=== PATIENT | female | born 1940 | race Two or more races ===

== ENCOUNTER 2017-09-10 04:59 | Observation (INO) | payer MEDICARE, OTHER ==
--- NOTE | 2017-09-10 05:32 | ED ---
Fall HPI - General Chief Complaint: Fall Stated Complaint: FALL Time Seen by Provider: 09/10/17 05:14 Source: patient, EMS Mode of arrival: EMS - History of Present Illness Initial Comments: This patient is a 77-year-old woman who had gotten up to use the bathroom this morning and then fell, striking her left side on the floor. She experienced pain to the left shoulder. The patient had been on the phone with her daughter called EMS. Patient denies other injuries. MD Complaint: fall Onset/Timin -: hour(s) Fall From: standing When Fall Occurred: 1 hour [employer]ERE[employer] O[employer] Fall Witnessed: no Place Fall Occurred: home Loss of Consciousness: unsure Prolonged Down Time?: no Symptoms Prior to Fall: dizziness Location - Extremities: Left: Shoulder Severity: moderate Quality: sharp Context: tripped/slipped Associated Symptoms: denies - Related Data Previous Rx's Medication Instructions Recorded Naproxen [Naprosyn] 500 mg PO Q12HR #14 tab 09/10/17 Docusate [Colace] 100 mg PO BID #60 capsule 09/11/17 HYDROcodone/APAP 5-325MG [[place] 1 tab PO Q4HR PRN #40 tab 09/11/17 5-325] Allergies Allergy/AdvReac Type Severity Reaction Status Date / Time No Known Allergies Allergy Verified 09/10/17 07:27 Review of Systems ROS Statement: Those systems with pertinent positive or pertinent negative responses have been documented in the HPI. ROS Other: All systems not noted in ROS Statement are negative. Constitutional: Denies: fever, chills, weakness Respiratory: Denies: cough, dyspnea Cardiovascular: Denies: chest pain, palpitations, edema, syncope Gastrointestinal: Denies: abdominal pain, nausea, vomiting Genitourinary: Denies: dysuria, hematuria Musculoskeletal: Reports: as per HPI, arthralgia. Denies: back pain Skin: Denies: rash Neurological: Denies: headache, weakness, numbness Past Medical History Past Medical History: Syncope History of Any Multi-Drug Resistant Organisms: None Reported Past Surgical History: Appendectomy, Bowel Resection, Cholecystectomy, Hysterectomy, Orthopedic Surgery Additional Past Surgical History / Comment(s): wrist surgery, L hip fx Past Psychological History: No Psychological Hx Reported Smoking Status: Never smoker Past Alcohol Use History: Unable to Obtain Past Drug Use History: None Reported - Past Family History Mother Family Medical History: Cancer Additional Family Medical History / Comment(s): colon Father Family Medical History: Cancer Additional Family Medical History / Comment(s): lung Sister(s) Family Medical History: AFIB, CVA/TIA General Exam Limitations: no limitations General appearance: alert, in no apparent distress, obese Head exam: Present: atraumatic, normocephalic Eye exam: Present: normal appearance, PERRL, EOMI. Absent: scleral icterus, conjunctival injection ENT exam: Present: normal oropharynx Neck exam: Present: normal inspection, full ROM. Absent: tenderness Respiratory exam: Present: normal lung sounds bilaterally. Absent: respiratory distress, wheezes, rales, rhonchi, stridor, chest wall tenderness, accessory muscle use, decreased breath sounds Cardiovascular Exam: Present: normal rhythm, bradycardia, normal heart sounds. Absent: systolic murmur, diastolic murmur, rubs, gallop GI/Abdominal exam: Present: soft. Absent: distended, tenderness, guarding, rebound, mass Extremities exam: Present: normal inspection, normal capillary refill. Absent: pedal edema, calf tenderness Back exam: Present: normal inspection. Absent: CVA tenderness (R), CVA tenderness (L), vertebral tenderness Neurological exam: Present: alert, oriented X3, CN II-XII intact. Absent: motor sensory deficit Skin exam: Present: warm, dry, intact, normal color. Absent: rash Course Vital Signs 09/10/17 09/10/17 09/10/17 05:00 05:16 05:56 Temperature 96.9 F L Pulse Rate 50 L 53 L Pulse Rate [ 50 L Bilateral Radial] Respiratory 18 16 Rate Blood Pressure 168/74 166/74 O2 Sat by Pulse 94 L 99 Oximetry 09/10/17 09/10/17 09/10/17 06:28 07:13 08:54 Temperature 98.1 F Pulse Rate 53 L 62 60 Pulse Rate [ Bilateral Radial] Respiratory 20 16 Rate Blood Pressure 140/79 145/85 158/83 O2 Sat by Pulse 99 98 99 Oximetry Medical Decision Making - Medical Decision Making Patient is a 77-year-old woman who had what his son like a syncopal episode and fall at home this morning. She has sustained a humerus fracture. Patient states she [facility] and would like to be seen by them again for this fracture. Patient be admitted for telemetry monitoring and repeat cardiac enzymes. - Lab Data Result diagrams: 09/10/17 05:12 09/10/17 05:12 Lab Results 09/10/17 09/10/17 09/10/17 Range/Units 05:12 05:12 05:12 WBC 7.0 (3.8-10.6) k/uL RBC 5.00 (3.80-5.40) m/uL Hgb 14.4 (11.4-16.0) gm/dL Hct 45.2 (34.0-46.0) % MCV 90.5 (80.0-100.0) fL MCH 28.9 (25.0-35.0) pg MCHC 31.9 (31.0-37.0) g/dL RDW 14.3 (11.5-15.5) % Plt Count 202 (150-450) k/uL Neutrophils % 54 % Lymphocytes % 35 % Monocytes % 4 % Eosinophils % 5 % Basophils % 1 % Neutrophils # 3.8 (1.3-7.7) k/uL Lymphocytes # 2.4 (1.0-4.8) k/uL Monocytes # 0.3 (0-1.0) k/uL Eosinophils # 0.4 (0-0.7) k/uL Basophils # 0.1 (0-0.2) k/uL PT (9.0-12.0) sec INR (<1.2) APTT (22.0-30.0) sec Sodium 144 (137-145) mmol/L Potassium 3.7 (3.5-5.1) mmol/L Chloride 105 (98-107) mmol/L Carbon Dioxide 26 (22-30) mmol/L Anion Gap 13 mmol/L BUN 13 (7-17) mg/dL Creatinine 0.80 (0.52-1.04) mg/dL Est GFR (MDRD) Af Amer >60 (>60 ml/min/1.73 sqM) Est GFR (MDRD) Non-Af >60 (>60 ml/min/1.73 sqM) Glucose 126 H (74-99) mg/dL Plasma Lactic Acid Jeffery (0.7-2.0) mmol/L Calcium 9.4 (8.4-10.2) mg/dL Magnesium 1.8 (1.6-2.3) mg/dL Total Bilirubin 0.4 (0.2-1.3) mg/dL AST 20 (14-36) U/L ALT 38 (9-52) U/L Alkaline Phosphatase 94 (38-126) U/L Total Creatine Kinase 38 (30-135) U/L CK-MB (CK-2) 0.8 (0.0-2.4) ng/mL CK-MB (CK-2) Rel Index 2.1 Troponin I <0.012 (0.000-0.034) ng/mL Total Protein 6.9 (6.3-8.2) g/dL Albumin 4.1 (3.5-5.0) g/dL 09/10/17 09/10/17 Range/Units 05:12 05:12 WBC (3.8-10.6) k/uL RBC (3.80-5.40) m/uL Hgb (11.4-16.0) gm/dL Hct (34.0-46.0) % MCV (80.0-100.0) fL MCH (25.0-35.0) pg MCHC (31.0-37.0) g/dL RDW (11.5-15.5) % Plt Count (150-450) k/uL Neutrophils % % Lymphocytes % % Monocytes % % Eosinophils % % Basophils % % Neutrophils # (1.3-7.7) k/uL Lymphocytes # (1.0-4.8) k/uL Monocytes # (0-1.0) k/uL Eosinophils # (0-0.7) k/uL Basophils # (0-0.2) k/uL PT 10.3 (9.0-12.0) sec INR 1.1 (<1.2) APTT 23.3 (22.0-30.0) sec Sodium (137-145) mmol/L Potassium (3.5-5.1) mmol/L Chloride (98-107) mmol/L Carbon Dioxide (22-30) mmol/L Anion Gap mmol/L BUN (7-17) mg/dL Creatinine (0.52-1.04) mg/dL Est GFR (MDRD) Af Amer (>60 ml/min/1.73 sqM) Est GFR (MDRD) Non-Af (>60 ml/min/1.73 sqM) Glucose (74-99) mg/dL Plasma Lactic Acid Jeffery 1.7 (0.7-2.0) mmol/L Calcium (8.4-10.2) mg/dL Magnesium (1.6-2.3) mg/dL Total Bilirubin (0.2-1.3) mg/dL AST (14-36) U/L ALT (9-52) U/L Alkaline Phosphatase (38-126) U/L Total Creatine Kinase (30-135) U/L CK-MB (CK-2) (0.0-2.4) ng/mL CK-MB (CK-2) Rel Index Troponin I (0.000-0.034) ng/mL Total Protein (6.3-8.2) g/dL Albumin (3.5-5.0) g/dL - EKG Data -: EKG Interpreted by Ct EKG shows normal: sinus rhythm, axis (Normal), intervals (AR interval is 218 ms , consistent with first-degree AV block. QRS 94 ms QTC 411 ms both of these are normal), ST-T waves Rate: bradycardia (Rate 51 bpm) Disposition Clinical Impression: Fall, Syncope, Humerus fracture Disposition: ADMITTED IP TO THIS [facility] Condition: Stable
[2017-09-10 05:48] LABS: Basophils # (A) 0.1 k/uL (0-0.2); Basophils % (A) 1 %; Eosinophils # (A) 0.4 k/uL (0-0.7); Eosinophils % (A) 5 %; HCT 45.2 % (34.0-46.0); HGB 14.4 gm/dL (11.4-16.0); Lymphocytes # (A) 2.4 k/uL (1.0-4.8); Lymphocytes % (A) 35 %; MCH 28.9 pg (25.0-35.0); MCHC 31.9 g/dL (31.0-37.0); MCV 90.5 fL (80.0-100.0); Mean Platelet Volume 7.9; Monocytes # (A) 0.3 k/uL (0-1.0); Monocytes % (A) 4 %; Neutrophils # (A) 3.8 k/uL (1.3-7.7); Neutrophils % (A) 54 %; Platelet Count 202 k/uL (150-450); RDW 14.3 % (11.5-15.5)
--- NOTE | 2017-09-10 05:55 | XR ---
EXAM: XR Chest, 1 View CLINICAL HISTORY: Reason: weakness TECHNIQUE: Frontal view of the chest. COMPARISON: None available FINDINGS: Lungs/pleura: Mild bibasilar atelectasis. No focal consolidation. No pleural effusion or pneumothorax. Heart/mediastinum: Mild enlargement of the cardiac silhouette. Soft tissues: Unremarkable. Bones: Displaced fracture of the left humeral neck. No definite dislocation of the left humeral head. Degenerative changes of the acromioclavicular joints. Upper abdomen: Normal. IMPRESSION: Displaced fracture of the left humeral neck. No acute cardiopulmonary abnormality.
--- NOTE | 2017-09-10 05:57 | XR ---
EXAM: XR Left Shoulder Complete, 2 or More Views CLINICAL HISTORY: Reason: Pain TECHNIQUE: Two or more views of the left shoulder. COMPARISON: None FINDINGS: Bones/joints: Displaced fracture of the left humeral neck. No dislocation of the left humeral head. Degenerative changes of the left acromioclavicular joint. Soft tissues: Normal. IMPRESSION: Displaced fracture of the left humeral neck. No left shoulder dislocation.
[2017-09-10 05:58] LABS: INR 1.1 (<1.2); Partial Thromboplastin Time 23.3 sec (22.0-30.0); Prothrombin Time 10.3 sec (9.0-12.0)
[2017-09-10 06:00] LABS: ALT 38 U/L (9-52); AST 20 U/L (14-36); Albumin 4.1 g/dL (3.5-5.0); Alkaline Phosphatase 94 U/L (38-126); Anion Gap 13 mmol/L; Blood Urea Nitrogen 13 mg/dL (7-17); Calcium 9.4 mg/dL (8.4-10.2); Carbon Dioxide 26 mmol/L (22-30); Chloride 105 mmol/L (98-107); Glucose 126 mg/dL (74-99); Magnesium 1.8 mg/dL (1.6-2.3); Potassium 3.7 mmol/L (3.5-5.1); Sodium 144 mmol/L (137-145); Total Bilirubin 0.4 mg/dL (0.2-1.3); Total Protein 6.9 g/dL (6.3-8.2)
[2017-09-10 06:17] LABS: Creatine Kinase 38 U/L (30-135)
[2017-09-10] MEDS ORDERED: HYDROmorphone 0.5 MG/0.5 ML SYRINGE IVP STA (06:28)
[2017-09-10 06:30] LABS: Creatine Kinase MB 0.8 ng/mL (0.0-2.4); Troponin I <0.012 ng/mL (0.000-0.034)
[2017-09-10] MEDS ORDERED: NALOXONE 0.4 MG/ML 1 ML VIAL IV PRN (08:09)
[2017-09-10 09:36] VITALS: BMI 35.9
[2017-09-10] MEDS: SODIUM CHLORIDE 0.9% 1,000 ML IV SCH (10:48)
[2017-09-10] MEDS: HYDROmorphone 0.5 MG/0.5 ML SYRINGE IVP PRN ×2 (13:58→19:01)
[2017-09-10] MEDS: HYDROcodone/APAP 5-325MG 1 EACH TAB PO PRN ×3 (13:59→21:56)
--- NOTE | 2017-09-10 14:47 | P.CRDCN ---
History of Present Illness Consult date: 09/13/17 History of present illness: Mrs. Iyer is a pleasant 77-year-old female with no significant past medical history. She takes no prescription medications. Denies history of coronary artery disease and has never seen a travel registered nurse icu for any reason in the past. She recalls having a cardiac testing approximately 5 years ago. This morning when she woke up she was on the phone with her daughter and used the bathroom to urinate. After finishing she walked into the other room to sit in her chair and she became acutely dizzy and fell forward. She used her left arm to break her fall. She denies loss of consciousness or loss of bowel/bladder function. After getting up the dizziness had resolved but she was extremely nauseated. She denies chest pain, shortness of breath, palpitations, diaphoresis or vomiting prior to or after the event. She was found to have a left humeral head fracture. EKG reveals first degree AV block with no non-specific T-wave abnormalities. These abnormalities were evident on old EKG with exception of AV block. Cardiac catherization done 2010 reveals 20% mid RCA plaque lesion and mild intimal proximal LAD disease. Chest xray is negative for an acute cardiopulmonary process. Laboratory data reviewed, hgb 14.4, plt 202, potassium 3.7, magnesium 1.8, cardiac enzymes negative x2. She takes no medications at home. Only cardiac risk factor is obesity. Review of Systems At the time of my exam: CONSTITUTIONAL: Denies fever. Denies chills. EYES: Denies blurred vision. Denies vision changes. Denies eye pain. EARS, NOSE, MOUTH & THROAT: Denies headache. Denies sore throat. Denies ear pain. CARDIOVASCULAR: Denies chest pain. Denies shortness of breath. Denies orthopnea. Denies PND. Denies palpitations. RESPIRATORY: Denies cough. GASTROINTESTINAL: Denies abdominal pain. Denies diarrhea. Denies constipation. Denies nausea. Denies vomiting. MUSCULOSKELETAL: Complains of pain to the left shoulder and arm. INTEGUMENTARY: Denies pruitis. Denies rash. NEUROLOGIC: Denies numbness. Denies tingling. Denies weakness. PSYCHIATRIC: Denies anxiety. Denies depression. ENDOCRINE: Denies fatigue. Denies weight change. Denies polydipsia. Denies polyurina. GENITOURINARY: Denies burning, hematuria or urgency with micturation. HEMATOLOGIC: Denies history of anemia. Denies bleeding. Past Medical History Past Medical History: Syncope Additional Past Medical History / Comment(s): stress test 5 years ago- all clear per patient. 12 years ago fell and fractured left hip- diagnosed with vertigo History of Any Multi-Drug Resistant Organisms: None Reported Past Surgical History: Appendectomy, Bowel Resection, Cholecystectomy, Hysterectomy, Orthopedic Surgery Additional Past Surgical History / Comment(s): wrist surgery, L hip fx Past Psychological History: No Psychological Hx Reported Smoking Status: Never smoker Past Alcohol Use History: Unable to Obtain Past Drug Use History: None Reported - Past Family History Mother Family Medical History: Cancer Additional Family Medical History / Comment(s): colon Father Family Medical History: Cancer Additional Family Medical History / Comment(s): lung Sister(s) Family Medical History: AFIB, CVA/TIA Medications and Allergies Home Medications Medication Instructions Recorded Confirmed Type No Known Home Medications [No 09/10/17 09/10/17 History Known Home Medications] Allergies Allergy/AdvReac Type Severity Reaction Status Date / Time No Known Allergies Allergy Verified 09/10/17 07:27 Physical Exam Vitals: Vital Signs Temp Pulse Pulse Pulse Resp BP BP 09/10/17 12:00 98.3 F 63 16 145/70 09/10/17 10:05 97.5 F L 62 16 176/75 09/10/17 09:30 67 16 09/10/17 08:54 98.1 F 60 16 158/83 09/10/17 07:13 62 145/85 09/10/17 06:28 53 L 20 140/79 09/10/17 05:56 53 L 16 166/74 09/10/17 05:16 50 L 09/10/17 05:00 96.9 F L 50 L 18 168/74 Pulse Ox 09/10/17 12:00 96 09/10/17 10:05 98 09/10/17 09:30 09/10/17 08:54 99 09/10/17 07:13 98 09/10/17 06:28 99 09/10/17 05:56 99 09/10/17 05:16 09/10/17 05:00 94 L Intake and Output 09/09/17 09/10/17 09/10/17 22:59 06:59 14:59 Other: Voiding Method Toilet Weight 94.801 kg 94.8 kg Patient Weight 09/11/17 06:59 Weight 94.8 kg Blood pressure 145/70 heart rate 63 afebrile GENERAL: This is a 77-year-old female in no apparent distress at the time of my examination. Obese. HEENT: Head is atraumatic, normocephalic. Pupils are equal, round. Sclerae anicteric. Conjunctivae are clear. Mucous membranes of the mouth are moist. Neck is supple. There is no jugular venous distention. No carotid bruit is heard. LUNGS: Clear to auscultation no wheezes, rales or rhonchi. No chest wall tenderness is noted on palpation or with deep breathing. HEART: Regular rate and rhythm without murmurs, rubs or gallops. S1 and S2 heard. ABDOMEN: Soft, nontender. Bowel sounds are heard. No organomegaly noted. EXTREMITIES: No evidence of peripheral edema and no calf tenderness noted. Left arm immobilized with a sling. VASCULAR: Radial and dorsalis pedis pulses strong and intact. NEUROLOGIC: Patient is awake, alert and oriented x3. Results 09/10/17 05:12 09/10/17 05:12 Cardiac Enzymes 09/10/17 09/10/17 09/10/17 Range/Units 05:12 05:12 12:45 AST 20 (14-36) U/L CK-MB (CK-2) 0.8 (0.0-2.4) ng/mL Troponin I <0.012 <0.012 (0.000-0.034) ng/mL Coagulation 09/10/17 Range/Units 05:12 PT 10.3 (9.0-12.0) sec APTT 23.3 (22.0-30.0) sec CBC 09/10/17 Range/Units 05:12 WBC 7.0 (3.8-10.6) k/uL RBC 5.00 (3.80-5.40) m/uL Hgb 14.4 (11.4-16.0) gm/dL Hct 45.2 (34.0-46.0) % Plt Count 202 (150-450) k/uL Comprehensive Metabolic Panel 09/10/17 Range/Units 05:12 Sodium 144 (137-145) mmol/L Potassium 3.7 (3.5-5.1) mmol/L Chloride 105 (98-107) mmol/L Carbon Dioxide 26 (22-30) mmol/L BUN 13 (7-17) mg/dL Creatinine 0.80 (0.52-1.04) mg/dL Glucose 126 H (74-99) mg/dL Calcium 9.4 (8.4-10.2) mg/dL AST 20 (14-36) U/L ALT 38 (9-52) U/L Alkaline Phosphatase 94 (38-126) U/L Total Protein 6.9 (6.3-8.2) g/dL Albumin 4.1 (3.5-5.0) g/dL Current Medications Generic Name Dose Route Start Last Admin Trade Name Freq PRN Reason Stop Dose Admin Hydrocodone Bitart/Acetaminophen 1 each 09/10/17 13:46 [place] 5-325 PO Q4HR PRN Pain Hydrocodone Bitart/Acetaminophen 2 each 09/10/17 13:46 [place] 5-325 PO Q6HR PRN Pain Hydromorphone HCl 0.25 mg 09/10/17 13:47 Dilaudid IVP Q3HR PRN Pain Sodium Chloride 1,000 mls @ 75 mls/hr 09/10/17 08:15 09/10/17 10:48 Saline 0.9% IV 75 mls/hr .[id number] DAYNE Administration Naloxone HCl 0.2 mg 09/10/17 08:09 Narcan IV Q2M PRN Opioid Reversal Intake and Output 09/09/17 09/10/17 09/10/17 22:59 06:59 14:59 Other: Voiding Method Toilet Weight 94.801 kg 94.8 kg Patient Weight 09/11/17 06:59 Weight 94.8 kg 09/10/17 05:12 09/10/17 05:12 Assessment and Plan Assessment: ASSESSMENT 1. Presyncope, vasovagal in nature. We will rule out cardiac causes. 2. Left humeral neck fracture with no dislocation evidence 3. Obesity PLAN Obtain 2-D echocardiogram to assess cardiac structure and function. Obtain bilateral carotid duplex to assess for stenosis. Obtain orthostatic vital signs. Check d-dimer. Continue to obtain serial cardiac enzymes. Repeat EKG in the morning. Mild blood pressure elevation may be secondary to pain. Will not treat at this time. The above impression and plan of care have been discussed and directed by the signing physician. Pushpa Fernández, nurse practitioner, acting as scribe for signing physician.
[2017-09-10 15:35] LABS: Appearance,Urine Clear (Clear); Bilirubin,Urine Negative (Negative); Blood,Urine Negative (Negative); Color,Urine Yellow; Glucose,Urine (UA) Negative (Negative); Ketones,Urine Trace (Negative); Leukocyte Esterase,Urine Negative (Negative); Nitrite,Urine Negative (Negative); Protein,Urine Negative (Negative); Specific Gravity,Urine 1.019 (1.001-1.035); Urobilinogen,Urine <2.0 mg/dL (<2.0)
--- NOTE | 2017-09-10 16:10 | US ---
EXAMINATION TYPE: US carotid duplex BILAT DATE OF EXAM: 09/10/2017 COMPARISON: NONE CLINICAL HISTORY: syncope. fall, hurt left shoulder, no h/o stroke EXAM MEASUREMENTS: RIGHT: Peak Systolic Velocity (PSV) cm/sec ----- Right CCA: 83.3 ----- Right ICA: 82.3 ----- Right ECA: 96.5 ICA/CCA ratio: 1.0 RIGHT: End Diastole cm/sec ----- Right CCA: 22.7 ----- Right ICA: 24.7 ----- Right ECA: 9.5 LEFT: Peak Systolic Velocity (PSV) cm/sec ----- Left CCA: 87.2 ----- Left ICA: 74.5 ----- Left ECA: 77.1 ICA/CCA ratio: 0.9 LEFT: End Diastole cm/sec ----- Left CCA: 23.7 ----- Left ICA: 23.8 ----- Left ECA: 14.2 VERTEBRALS (direction of flow): Right Vertebral: Antegrade Left Vertebral: unable to visualize vert art or vein Rhythm: Normal Mild homogeneous plaque with mild heterogenous plaque only seen at left bulb, no significant stenosis seen pulsatile vessels made imaging challenging IMPRESSION: Mild homogeneous plaque with mild heterogenous plaque only seen at left bulb, no signifi cant stenosis seen Criteria for Assigning % of Stenosis / Diameter reduction (Estimation based on the indirect measurements of the internal carotid artery velocities (ICA PSV). 1. Normal (no stenosis)=ICA PSV < 125 cm/s: ratio < 2.0: ICA EDV<40 cm/s. 2. Less than 50% stenosis=ICA PSV < 125 cm/s: ratio < 2.0: ICA EDV<40 cm/s. 3. 50 to 69% stenosis=ICA PSV of 125 to 230 cm/s: ration 2.0 ? 4.0: ICA EDV 40-100 cm/s. 4. Greater than 70% stenosis to near occlusion= ICA PSV > 230 cm/s: ratio > 4.0: ICA EDV > 100 cm/s. 5. Near occlusion= ICA PSV velocities may be low or undetectable: variable ratio and ICA EDV. 6. Total occlusion=unable to detect flow.
--- NOTE | 2017-09-10 16:50 | HP ---
HISTORY AND PHYSICAL PRESENT COMPLAINT: Fall. HISTORY OF PRESENTING COMPLAINT: Pleasant 77 -year-old patient of Dr. Colmenares with unremarkable past medical history. The patient follows close, gets up to talk to her daughter, who leaves for work was on the phone, went to the bathroom and wanted to sit down, but instead of sitting backwards, somehow she went forward, just not feeling right and fell down. Never passed out. No palpitations. No focal weakness. No tongue biting. No seizure activity. The patient has got a fractured left shoulder, left arm in a sling. The patient in good health, otherwise. Normally able to get around pretty good. The patient sleeps rather well. REVIEW OF SYSTEMS: CONSTITUTIONAL: None. HEENT none. Respiratory none. Cardiovascular: None. Gastrointestinal: None. Musculoskeletal as above. Dermatological, hematologic and lymphatics none. Psychiatry none. Neurological: Nil focal. PAST MEDICAL HISTORY: Did have a stress test 5 years ago. They were all negative. PAST SURGICAL HISTORY: Appendectomy, bowel resection, cholecystectomy, hysterectomy, left hip fracture with surgery in the past. SOCIAL HISTORY: Lives by herself. No smoking. No alcohol. FAMILY HISTORY: Of colon cancer. HOME MEDICATIONS: None. ALLERGIES: None. PHYSICAL EXAMINATION: Vital signs on presentation: Temperature 96.9, pulse 50, respiratory 18, blood pressure 160/74, pulse ox 94% on 2 L. Repeat 140/79. GENERAL APPEARANCE: Well built. BMI 35.9, lying in bed comfortable. Eyes pupils equal. Conjunctivae normal. HEENT: Oral cavity normal. Neck JVD not raised. Mass not palpable. Respiratory effort: Lungs are clear. Cardiovascular: First and second sounds normal. No edema. ABDOMEN: Soft, nontender. Liver and spleen not palpable. Lymphatics: No lymph nodes palpable in neck or axillae. Psychiatry: Alert and oriented times three. Mood and affect normal. Neurological: Pupils equal. Cranial nerves grossly intact. Power and sensation grossly intact. Extremities: Left arm in a sling. INVESTIGATIONS: White count 7, hemoglobin 14.4, potassium 3.7, BUN and creatinine is normal. Troponin times two is negative. Shoulder x-ray shows displaced fracture of the left humeral neck. EKG sinus bradycardia. ASSESSMENT: 1. Sinus bradycardia. Wondering if that was contributing to her syncope. Cardiology has been consulted. 2. Left humeral neck fracture secondary to fall. 3. Obesity BMI of 35.9. PLAN: Orthopedics was consulted at this point and so was Cardiology. Await their input. Care was discussed with the patient and daughter at the bedside. Copy to Dr. Colmenares. MERRICK / LACEY: [id number] /
[2017-09-10] MEDS ORDERED: RX INFO: IV CONTRAST WAS GIVEN 1 EACH MISC MISCELLANE PRN (18:19)
--- NOTE | 2017-09-10 20:40 | CT ---
EXAMINATION TYPE: CT angio chest DATE OF EXAM: 09/10/2017 8:16 PM COMPARISON: NONE HISTORY: Chest pain and Abnormal labs. CT DLP: 611 mGycm Automated exposure control for dose reduction was used. CONTRAST: CTA scan of the thorax is performed with IV Contrast, patient injected with 100 mL of Omnipaque 350, pulmonary embolism protocol. There are 3-D post processed images.. FINDINGS: The lungs are clear of consolidation. There is no pleural effusion. I see no filling defects in the p ulmonary arteries. There is normal contrast opacification of the pulmonary arteries. There is no evid ence of aortic aneurysm or dissection. There is no mediastinal adenopathy. There are no hilar masses. There is no pericardial effusion. There are a few tiny calcified granulomata in the right paratrache al region and also in the right lower lobe. IMPRESSION: NEGATIVE EXAM. NO EVIDENCE OF PULMONARY EMBOLISM. Old granulomatous disease.
[2017-09-11] MEDS: SODIUM CHLORIDE 0.9% 1,000 ML IV SCH
[2017-09-11] MEDS: HYDROmorphone 0.5 MG/0.5 ML SYRINGE IVP PRN (00:50)
[2017-09-11] MEDS: HYDROcodone/APAP 5-325MG 1 EACH TAB PO PRN ×2 (04:48→11:07)
--- NOTE | 2017-09-11 09:21 | P.CNOR ---
History of Present Illness - [facility] Consult date: 09/11/17 Consult reason: fracture History of present illness: Patient is a pleasant 77-year-old female seen at bedside this morning in consultation for a left proximal humerus fracture. She presented to the emergency department yesterday 09/10/2017 after a fall at home. She states she became lightheaded/dizzy and fell to her left side. She developed immediate left shoulder pain subsequently. X-rays through the emergency department showed a left proximal humerus fracture. She denies losing consciousness or having head trauma. She was cleared by the emergency department for further injury. She is also being seen by cardiology for possible etiology of her lightheaded/dizziness. Her pain is controlled this morning on oral pain medication. She denies numbness or tingling at the left upper extremity. She has no other complaints. Review of Systems All systems: negative Past Medical History Past Medical History: Syncope Additional Past Medical History / Comment(s): stress test 5 years ago- all clear per patient. 12 years ago fell and fractured left hip- diagnosed with vertigo History of Any Multi-Drug Resistant Organisms: None Reported Past Surgical History: Appendectomy, Bowel Resection, Cholecystectomy, Hysterectomy, Orthopedic Surgery Additional Past Surgical History / Comment(s): wrist surgery, L hip fx Past Psychological History: No Psychological Hx Reported Smoking Status: Never smoker Past Alcohol Use History: Unable to Obtain Past Drug Use History: None Reported - Past Family History Mother Family Medical History: Cancer Additional Family Medical History / Comment(s): colon Father Family Medical History: Cancer Additional Family Medical History / Comment(s): lung Sister(s) Family Medical History: AFIB, CVA/TIA Medications and Allergies Home Medications Medication Instructions Recorded Confirmed Type Naproxen [Naprosyn] 500 mg PO Q12HR #14 tab 09/10/17 Rx Docusate [Colace] 100 mg PO BID #60 capsule 09/11/17 Rx HYDROcodone/APAP 5-325MG [[place] 1 tab PO Q4HR PRN #40 tab 09/11/17 Rx 5-325] Allergies Allergy/AdvReac Type Severity Reaction Status Date / Time No Known Allergies Allergy Verified 09/10/17 07:27 Physical Examination Inspection of the left upper extremity shows some mild ecchymosis and swelling at the left shoulder as expected but otherwise benign. There are no wounds or lacerations. Range of motion of the shoulder not tested due to her fracture. She has painless range of motion with flexion-extension at the elbow, wrist and hand. Motor and sensation is intact throughout the left upper extremity. 2+ radial pulse and less than 2 second capillary refill is present. Results - Labs Labs: Abnormal Lab Results - Last 24 Hours (Table) 09/10/17 09/10/17 Range/Units 15:00 16:40 D-Dimer 1.34 H (<0.60) mg/L FEU Urine Ketones Trace H (Negative) H & H 09/10/17 Range/Units 05:12 Hgb 14.4 (11.4-16.0) gm/dL Hct 45.2 (34.0-46.0) % Coagulation 09/10/17 Range/Units 05:12 INR 1.1 (<1.2) Result Diagrams: 09/10/17 05:12 09/10/17 05:12 - Diagnostic results Shoulder x-ray: report reviewed, image reviewed Assessment and Plan (1) Humerus fracture Narrative/Plan: She has a mild displaced proximal humerus fracture. This does not require immediate surgical intervention. We will order a more comfortable sling. I advised her on proper activities and pain medicine. She is to follow-up in our office in approximately 1 week for recheck and make further recommendations as appropriate. This patient and her x-rays have been reviewed with Dr. Barbour. Current Visit: Yes Status: Acute Priority: Medium Code(s): S42.309A - UNSP FRACTURE OF SHAFT OF HUMERUS, UNSP ARM, INIT SNOMED Code(s): 47757585 Time with Patient: Less than 30
--- NOTE | 2017-09-11 10:07 | ECHOF ---
Referral Reason:syncope MEASUREMENTS -------- HEIGHT: 162.6 cm WEIGHT: 94.3 kg BP: 145/70 RVIDd: 2.5 cm (< 3.3) IVSd: 1.2 cm (0.6 - 1.1) LVIDd: 4.5 cm (3.9 - 5.3) LVPWd: 1.2 cm (0.6 - 1.1) IVSs: 1.9 cm LVIDs: 3.0 cm LVPWs: 1.6 cm LA Diam: 3.3 cm (2.7 - 3.8) LAESV Index (A-L): 20.50 ml/m Ao Diam: 3.0 cm (2.0 - 3.7) AV Cusp: 1.9 cm (1.5 - 2.6) MV EXCURSION: 16.659 mm (> 18.000) MV EF SLOPE: 43 mm/s (70 - 150) EPSS: 0.3 cm MV E Wilberto: 0.52 m/s MV DecT: 430 ms MV A Wilberto: 0.67 m/s MV E/A Ratio: 0.78 AV maxP.19 mmHg AV meanP.25 mmHg RAP: 5.00 mmHg RVSP: 14.73 mmHg FINDINGS -------- Sinus rhythm with extra systolic beats. This was a technically adequate study. The left ventricular size is normal. There is borderline concentric left ventricular hypertrophy. Overall left ventricular systolic function is normal with, an EF between 55 - 60 %. The right ventricle is normal in size and function. Normal LA size by volume 22+/-6 ml/m2. The right atrium is normal in size. There is mild aortic valve sclerosis. Mild mitral annular calcification present. Trace tricuspid regurgitation present. Right ventricular systolic pressure is normal at < 35 mmHg. The pulmonic valve was not well visualized. The aortic root size is normal. Normal inferior vena cava with normal inspiratory collapse consistent with estimated right atrial pre ssure of 5 mmHg. There is no pericardial effusion. CONCLUSIONS -------- 1. Sinus rhythm with extra systolic beats. 2. This was a technically adequate study. 3. The left ventricular size is normal. 4. There is borderline concentric left ventricular hypertrophy. 5. Overall left ventricular systolic function is normal with, an EF between 55 - 60 %. 6. The right ventricle is normal in size and function. 7. Normal LA size by volume 22+/-6 ml/m2. 8. The right atrium is normal in size. 9. There is mild aortic valve sclerosis. 10. Mild mitral annular calcification present. 11. Trace tricuspid regurgitation present. 12. Right ventricular systolic pressure is normal at < 35 mmHg. 13. The pulmonic valve was not well visualized. 14. The aortic root size is normal. 15. Normal inferior vena cava with normal inspiratory collapse consistent with estimated right atrial pressure of 5 mmHg. 16. There is no pericardial effusion. [employer] TECHNICIAN: Sonia Rodríguez RDCS
--- NOTE | 2017-09-11 10:09 | P.PN ---
Subjective Progress Note Date: 09/11/17 Mrs. Iyer is a pleasant 77-year-old female with no significant past medical history. She takes no prescription medications. Denies history of coronary artery disease and has never seen a wellness program coordinator for any reason in the past. She recalls having a cardiac testing approximately 5 years ago. This morning when she woke up she was on the phone with her daughter and used the bathroom to urinate. After finishing she walked into the other room to sit in her chair and she became acutely dizzy and fell forward. She used her left arm to break her fall. She denies loss of consciousness or loss of bowel/bladder function. After getting up the dizziness had resolved but she was extremely nauseated. She denies chest pain, shortness of breath, palpitations, diaphoresis or vomiting prior to or after the event. She was found to have a left humeral head fracture. EKG reveals first degree AV block with no non-specific T-wave abnormalities. These abnormalities were evident on old EKG with exception of AV block. Cardiac catherization done 2010 reveals 20% mid RCA plaque lesion and mild intimal proximal LAD disease. Chest xray is negative for an acute cardiopulmonary process. Laboratory data reviewed, hgb 14.4, plt 202, potassium 3.7, magnesium 1.8, cardiac enzymes negative x2. She takes no medications at home. Only cardiac risk factor is obesity. 09/11/2017 Mrs. Iyer is seen today in follow-up. She is in no acute distress. Continues to complain of left shoulder pain. Denies any episodes of syncope or pre-syncope. Telemetry tracings have been unremarkable. Carotid doppler study reveals mild homogenous plaque with heterogenous plaque only seen at the left bulb with no significant stenosis. Echocardiogram was reviewed, reveals normal EF. Orthostatic vital signs are negative. D-dimer came to be elevated and a CTA was ordered which was negative for PE. Objective - Vital Signs Vital signs: Vital Signs Temp 97.5 F L 09/11/17 07:54 Pulse 59 L 09/11/17 07:54 Resp 17 09/11/17 07:54 BP 117/68 09/11/17 07:54 Pulse Ox 95 09/11/17 07:54 Intake & Output 09/10/17 09/11/17 09/11/17 18:59 06:59 18:59 Intake Total 236 440 Output Total 400 Balance -164 440 Weight 94.8 kg Intake: Oral 236 240 Other 200 Output: Urine 400 Other: Voiding Method Toilet Toilet Toilet # Voids 1 - Exam Blood pressure 117/68 heart rate 59 afebrile GENERAL: Well-appearing, well-nourished and in no acute distress. NECK: Supple without JVD or thyromegaly. LUNGS: Breath sounds clear to auscultation bilaterally. Respiration equal and unlabored. No wheezes, rales or rhonchi. HEART: Regular rate and rhythm without murmurs, rubs or gallops. S1 and S2 heard. EXTREMITIES: No edema of lower extremities. No clubbing or cyanosis. Peripheral pulses intact and strong. Left arm immobilized with a sling. - Labs CBC & Chem 7: 09/10/17 05:12 09/10/17 05:12 Labs: Abnormal Lab Results - Last 24 Hours (Table) 09/10/17 09/10/17 Range/Units 15:00 16:40 D-Dimer 1.34 H (<0.60) mg/L FEU Urine Ketones Trace H (Negative) Assessment and Plan Assessment: ASSESSMENT 1. Presyncope, vasovagal in nature. Cardiac causes have been ruled out. 2. Left humeral neck fracture with no dislocation evidence 3. Obesity PLAN From cardiac perspective Mrs. Iyer is stable, no further cardiac evaluation needed at this time. Follow with her PCP upon discharge. The above impression and plan of care have been discussed and directed by the signing physician. Pushpa Fernández, nurse practitioner, acting as scribe for signing physician.
[2017-09-11 11:31] VITALS: BP 123/61; PULSE 67; RESP 18; TEMP 97.7
--- NOTE | 2017-09-11 20:23 | P.DS ---
Providers Date of admission: 09/10/17 08:09 Expected date of discharge: 09/11/17 Attending physician: James Samuel Consults: 09/10/17 08:10 Consult Physician Routine Consulting Provider: Manuel Fields Consult Reason/Comments: humerus fracture Do you want consulting provider notified?: Yes 09/10/17 12:04 Consult Physician Routine Consulting Provider: Ar Randall Consult Reason/Comments: presyncopal event,fall Do you want consulting provider notified?: Already Contacted Primary care physician: [facility] Course: FINAL DIAGNOSES: -Sinus bradycardia -Left humeral neck fracture secondary to a fall. -Obesity body mass index of 35.9. HOSPTIAL COURSE: 77-year-old female who presented to the emergency department after sustaining a fall home. Imaging in the emergency department revealed a left proximal humerus fracture Home medications reordered, orthopedics, and cardiology consulted. Orthopedics saw the patient and patient has a mild displaced left proximal humerus fracture which does not require immediate surgical intervention. Left arm placed in a sling, pain medications ordered, patient instructed to follow up in a week for recheck further recommendations. Cardiology saw the patient placed her on telemetry, carotid Doppler revealed mild homogenous plaque with heterogeneous plaques but no significant stenosis, echocardiogram reviewed normal EF. Orthostatic vitals were negative. D-dimer was elevated CTA completed which was negative for PE. Vital signs stable, ambulatory in the room and hallway, tolerating her diet, moving her bowels. Anxious to go home. Consultants agree patient is stable for discharge. PHYSICAL EXAM: CARDIOVASCULAR: First and second sounds noted no edema RESPIRATORY: Effort normal, lungs diminished bilaterally MUSCULOSKELETAL: Left arm in a sling Patient was seen and examined by nurse practitioner Jessica Archibald in all elements of the case discussed with attending Dr. Samuel DISPOSITION: Discharged home Patient Condition at Discharge: Stable Plan - Discharge Summary Discharge Rx Participant: No New Discharge Prescriptions: New Naproxen [Naprosyn] 500 mg PO Q12HR #14 tab Docusate [Colace] 100 mg PO BID #60 capsule HYDROcodone/APAP 5-325MG [[place] 5-325] 1 tab PO Q4HR PRN #40 tab PRN Reason: Pain Discharge Medication List Naproxen [Naprosyn] 500 mg PO Q12HR #14 tab 09/10/17 [Rx] Docusate [Colace] 100 mg PO BID #60 capsule 09/11/17 [Rx] HYDROcodone/APAP 5-325MG [[place] 5-325] 1 tab PO Q4HR PRN #40 tab 09/11/17 [Rx] Follow up Appointment(s)/Referral(s): Alex Colmenares MD [Primary Care Provider] - 3 Days Josue Barbour MD [STAFF PHYSICIAN] - 1 Week Patient Instructions/Handouts: Fall Prevention (DC), Proximal Humerus Fracture (GEN) Activity/Diet/Wound Care/Special Instructions: maintain sling non weightbearing left upper extremity take meds as directed f/u with Dr. Barbour in office Discharge Disposition: HOME SELF-CARE
== END 2017-09-11 13:44 | disposition home or self-care (01) ==
LOC: EC 04:59 → 3OBS 08:09
PROVIDERS: ADMIT Hospitalist; ATTEND Hospitalist
DX: R55 Syncope and collapse (principal); R00.1 Bradycardia, unspecified; S42.212A Unspecified displaced fracture of surgical neck of left humerus, initial encounter for closed fracture; Z68.35 Body mass index [BMI] 35.0-35.9, adult; R42 Dizziness and giddiness; R79.89 Other specified abnormal findings of blood chemistry; E66.9 Obesity, unspecified; W01.0XXA Fall on same level from slipping, tripping and stumbling without subsequent striking against object, initial encounter; Y92.009 Unspecified place in unspecified non-institutional (private) residence as the place of occurrence of the external cause; Z87.81 Personal history of (healed) traumatic fracture; Z80.0 Family history of malignant neoplasm of digestive organs; Z82.3 Family history of stroke; Z82.49 Family history of ischemic heart disease and other diseases of the circulatory system
CPT/HCPCS: 96374 ×2; 99285 ×2; 93005 ×2; 96376 ×2; 36415; 94760; 93306; 85379; 80053; 82550; 82553; 83605; 83735; 84484; 85025; 85610; 85730; 81003; 73030; 71045; 93880; 71275; G0378 ×2; Q9967; J1170 ×2

== ENCOUNTER 2017-10-10 02:34 | Inpatient (IN) | payer MEDICARE, OTHER ==
[2017-10-10] MEDS ORDERED: KETOROLAC 30 MG/ML 1 ML VIAL IM STA (02:56)
[2017-10-10] MEDS ORDERED: DIAZEPAM 2 MG TAB PO STA (02:57)
--- NOTE | 2017-10-10 03:00 | ED ---
Back Pain HPI - General Source: patient, RN notes reviewed Limitations: physical limitation <Tracey Lowry - Last Filed: 10/10/17 04:25> <Steve Julian - Last Filed: 10/10/17 06:32> - General Chief Complaint: Back Pain/Injury Stated Complaint: back/side pain Time Seen by Provider: 10/10/17 02:48 - History of Present Illness Initial Comments: This is a 77-year-old female who presents to the emergency department with chief complaint of right sided rib/back pain. Patient states that throughout the day today she has been experiencing right-sided rib pain that is worse with deep breathing. She states that this area is also tender on palpation. She denies any falls or trauma but does state that she had a fall 4 weeks ago and she injured her left shoulder at that time. Patient denies any urinary symptoms such as dysuria, hematuria or increased frequency. She denies fevers or chills, abdominal pain, nausea or vomiting, diarrhea or constipation, numbness or tingling, headache or dizziness. (Tracey Lowry) - Related Data Previous Rx's Medication Instructions Recorded Docusate [Colace] 100 mg PO BID #60 capsule 09/11/17 HYDROcodone/APAP 5-325MG [[place] 1 tab PO Q4HR PRN #40 tab 09/11/17 5-325] Allergies Allergy/AdvReac Type Severity Reaction Status Date / Time No Known Allergies Allergy Verified 10/10/17 02:40 Review of Systems ROS Other: All systems not noted in ROS Statement are negative. <Tracey Lowry - Last Filed: 10/10/17 04:25> ROS Other: All systems not noted in ROS Statement are negative. <Steve Julian - Last Filed: 10/10/17 06:32> ROS Statement: Those systems with pertinent positive or pertinent negative responses have been documented in the HPI. Past Medical History Past Medical History: Syncope Additional Past Medical History / Comment(s): stress test 5 years ago- all clear per patient. 12 years ago fell and fractured left hip- diagnosed with vertigo History of Any Multi-Drug Resistant Organisms: None Reported Past Surgical History: Appendectomy, Bowel Resection, Cholecystectomy, Hysterectomy, Orthopedic Surgery Additional Past Surgical History / Comment(s): wrist surgery, L hip fx, Past Psychological History: No Psychological Hx Reported Smoking Status: Never smoker Past Alcohol Use History: Unable to Obtain Past Drug Use History: None Reported - Past Family History Mother Family Medical History: Cancer Additional Family Medical History / Comment(s): colon Father Family Medical History: Cancer Additional Family Medical History / Comment(s): lung Sister(s) Family Medical History: AFIB, CVA/TIA <Tracey Lowry - Last Filed: 10/10/17 04:25> General Exam Limitations: physical limitation <EssenceTracey Bob - Last Filed: 10/10/17 04:25> <Steve Julian - Last Filed: 10/10/17 06:32> - General Exam Comments Initial Comments: General: Awake and alert, well-developed; in no apparent distress. HEENT: Head atraumatic, normocephalic. Pupils are equal, round and reactive to light. Extraocular movements intact. Oropharynx moist without erythema or exudate. Neck: Supple. Normal ROM. Cardiovascular: Regular rate and rhythm. No murmurs, rubs or gallops. Chest symmetrical. Tenderness on palpation of right lower ribs. Respiratory: Lungs clear to auscultation bilaterally. No wheezes, rales or rhonchi. Normal respiratory effort with no use of accessory muscles. Abdomen: Soft, non-tender, non-distended. No rigidity, rebound or guarding. Normal bowel sounds in all 4 quadrants. Skin: [place], warm and dry without rashes or lesions. Neurological: Alert and oriented x3. CN II-XII grossly intact. Speech is fluent and answers are appropriate. No focal neuro deficits. Psychiatric: Normal mood and affect. No overt signs of depression or anxiety noted. (EssenceTracey Bob) Vital Signs 10/10/17 10/10/17 02:36 04:29 Temperature 100.1 F H 99.5 F Pulse Rate 79 90 Respiratory 18 16 Rate Blood Pressure 136/63 143/63 O2 Sat by Pulse 95 97 Oximetry Medical Decision Making - Lab Data Result diagrams: 10/10/17 03:49 10/10/17 03:49 - Radiology Data Radiology results: report reviewed <CoyoteBrian odomTracey Bob - Last Filed: 10/10/17 04:25> - Lab Data Result diagrams: 10/10/17 03:49 10/10/17 03:49 - Radiology Data Radiology results: report reviewed (As discussed with radiologist: Scattered pulmonary emboli mostly right lower lobe with concern for infarct. There also may be a portion of right ventricular strain.) <Steve Julian - Last Filed: 10/10/17 06:32> - Medical Decision Making Patient was reevaluated by myself Dr. Julian twice. Patient is updated on results and plan. Patient had discomfort right lateral lower thoracic region. Patient was increased risk secondary to recent left arm fracture. Case was discussed with practitioner Jessica, who will admit for Dr. keen, covering for Dr. colmenares (Steve Julian) - Lab Data Lab Results 10/10/17 10/10/17 10/10/17 Range/Units 02:00 03:49 03:49 WBC 9.6 (3.8-10.6) k/uL RBC 4.83 (3.80-5.40) m/uL Hgb 13.8 (11.4-16.0) gm/dL Hct 43.9 (34.0-46.0) % MCV 90.9 (80.0-100.0) fL MCH 28.6 (25.0-35.0) pg MCHC 31.5 (31.0-37.0) g/dL RDW 13.4 (11.5-15.5) % Plt Count 203 (150-450) k/uL Neutrophils % 79 % Lymphocytes % 14 % Monocytes % 4 % Eosinophils % 2 % Basophils % 0 % Neutrophils # 7.5 (1.3-7.7) k/uL Lymphocytes # 1.4 (1.0-4.8) k/uL Monocytes # 0.4 (0-1.0) k/uL Eosinophils # 0.2 (0-0.7) k/uL Basophils # 0.0 (0-0.2) k/uL D-Dimer (<0.60) mg/L FEU Sodium (137-145) mmol/L Potassium (3.5-5.1) mmol/L Chloride (98-107) mmol/L Carbon Dioxide (22-30) mmol/L Anion Gap mmol/L BUN (7-17) mg/dL Creatinine (0.52-1.04) mg/dL Est GFR (MDRD) Af Amer (>60 ml/min/1.73 sqM) Est GFR (MDRD) Non-Af (>60 ml/min/1.73 sqM) Glucose (74-99) mg/dL Plasma Lactic Acid Jeffery (0.7-2.0) mmol/L Calcium (8.4-10.2) mg/dL Total Bilirubin (0.2-1.3) mg/dL AST (14-36) U/L ALT (9-52) U/L Alkaline Phosphatase (38-126) U/L Total Protein (6.3-8.2) g/dL Albumin (3.5-5.0) g/dL Amylase 46 (30-110) U/L Lipase 48 (23-300) U/L Urine Color Yellow Urine Appearance Cloudy H (Clear) Urine pH 5.0 (5.0-8.0) Ur Specific [place] 1.018 (1.001-1.035) Urine Protein Trace H (Negative) Urine Glucose (UA) Negative (Negative) Urine Ketones 1+ H (Negative) Urine Blood Small H (Negative) Urine Nitrite Negative (Negative) Urine Bilirubin Negative (Negative) Urine Urobilinogen <2.0 (<2.0) mg/dL Ur Leukocyte Esterase Moderate H (Negative) Urine RBC 3 (0-5) /hpf Urine WBC 7 H (0-5) /hpf Ur Squamous Epith Cells 6 H (0-4) /hpf Hyaline Casts 3 H (0-2) /lpf Urine Mucus Few H (None) /hpf Influenza Type A RNA (Not Detectd) Influenza Type B (PCR) (Not Detectd) 10/10/17 10/10/17 10/10/17 Range/Units 03:49 03:49 03:49 WBC (3.8-10.6) k/uL RBC (3.80-5.40) m/uL Hgb (11.4-16.0) gm/dL Hct (34.0-46.0) % MCV (80.0-100.0) fL MCH (25.0-35.0) pg MCHC (31.0-37.0) g/dL RDW (11.5-15.5) % Plt Count (150-450) k/uL Neutrophils % % Lymphocytes % % Monocytes % % Eosinophils % % Basophils % % Neutrophils # (1.3-7.7) k/uL Lymphocytes # (1.0-4.8) k/uL Monocytes # (0-1.0) k/uL Eosinophils # (0-0.7) k/uL Basophils # (0-0.2) k/uL D-Dimer (<0.60) mg/L FEU Sodium 139 (137-145) mmol/L Potassium 4.1 (3.5-5.1) mmol/L Chloride 102 (98-107) mmol/L Carbon Dioxide 24 (22-30) mmol/L Anion Gap 13 mmol/L BUN 13 (7-17) mg/dL Creatinine 0.60 (0.52-1.04) mg/dL Est GFR (MDRD) Af Amer >60 (>60 ml/min/1.73 sqM) Est GFR (MDRD) Non-Af >60 (>60 ml/min/1.73 sqM) Glucose 136 H (74-99) mg/dL Plasma Lactic Acid Jeffery 1.0 (0.7-2.0) mmol/L Calcium 9.7 (8.4-10.2) mg/dL Total Bilirubin 1.0 (0.2-1.3) mg/dL AST 16 (14-36) U/L ALT 20 (9-52) U/L Alkaline Phosphatase 98 (38-126) U/L Total Protein 7.2 (6.3-8.2) g/dL Albumin 4.2 (3.5-5.0) g/dL Amylase (30-110) U/L Lipase (23-300) U/L Urine Color Urine Appearance (Clear) Urine pH (5.0-8.0) Ur Specific [place] (1.001-1.035) Urine Protein (Negative) Urine Glucose (UA) (Negative) Urine Ketones (Negative) Urine Blood (Negative) Urine Nitrite (Negative) Urine Bilirubin (Negative) Urine Urobilinogen (<2.0) mg/dL Ur Leukocyte Esterase (Negative) Urine RBC (0-5) /hpf Urine WBC (0-5) /hpf Ur Squamous Epith Cells (0-4) /hpf Hyaline Casts (0-2) /lpf Urine Mucus (None) /hpf Influenza Type A RNA Not Detected (Not Detectd) Influenza Type B (PCR) Not Detected (Not Detectd) 10/10/17 Range/Units 03:49 WBC (3.8-10.6) k/uL RBC (3.80-5.40) m/uL Hgb (11.4-16.0) gm/dL Hct (34.0-46.0) % MCV (80.0-100.0) fL MCH (25.0-35.0) pg MCHC (31.0-37.0) g/dL RDW (11.5-15.5) % Plt Count (150-450) k/uL Neutrophils % % Lymphocytes % % Monocytes % % Eosinophils % % Basophils % % Neutrophils # (1.3-7.7) k/uL Lymphocytes # (1.0-4.8) k/uL Monocytes # (0-1.0) k/uL Eosinophils # (0-0.7) k/uL Basophils # (0-0.2) k/uL D-Dimer 1.61 H (<0.60) mg/L FEU Sodium (137-145) mmol/L Potassium (3.5-5.1) mmol/L Chloride (98-107) mmol/L Carbon Dioxide (22-30) mmol/L Anion Gap mmol/L BUN (7-17) mg/dL Creatinine (0.52-1.04) mg/dL Est GFR (MDRD) Af Amer (>60 ml/min/1.73 sqM) Est GFR (MDRD) Non-Af (>60 ml/min/1.73 sqM) Glucose (74-99) mg/dL Plasma Lactic Acid Jeffery (0.7-2.0) mmol/L Calcium (8.4-10.2) mg/dL Total Bilirubin (0.2-1.3) mg/dL AST (14-36) U/L ALT (9-52) U/L Alkaline Phosphatase (38-126) U/L Total Protein (6.3-8.2) g/dL Albumin (3.5-5.0) g/dL Amylase (30-110) U/L Lipase (23-300) U/L Urine Color Urine Appearance (Clear) Urine pH (5.0-8.0) Ur Specific [place] (1.001-1.035) Urine Protein (Negative) Urine Glucose (UA) (Negative) Urine Ketones (Negative) Urine Blood (Negative) Urine Nitrite (Negative) Urine Bilirubin (Negative) Urine Urobilinogen (<2.0) mg/dL Ur Leukocyte Esterase (Negative) Urine RBC (0-5) /hpf Urine WBC (0-5) /hpf Ur Squamous Epith Cells (0-4) /hpf Hyaline Casts (0-2) /lpf Urine Mucus (None) /hpf Influenza Type A RNA (Not Detectd) Influenza Type B (PCR) (Not Detectd) - Radiology Data X-ray right ribs with PA chest findings: Lungs are unremarkable as visualized. No consolidation. Pleural spaces unremarkable with no pneumothorax. The right- sided ribs demonstrate no definitive fracture or traumatic malalignment. There is a partially visualized fracture at the proximal left humerus, also noted previously. Impression: 1. No visualized rib injury. 2. Partially visualized fracture the proximal left humerus, also seen on previous radiograph. As read by Dr. Holman. (Tracey Lowry) Disposition <Tracey Lowry - Last Filed: 10/10/17 04:25> Decision Time: 06:32 <Steve Julian - Last Filed: 10/10/17 06:32> Clinical Impression: Pulmonary embolism Disposition: ADMITTED IP TO THIS HOSP Condition: Serious Referrals: Alex Colmenares MD [Primary Care Provider] - 1-2 days
[2017-10-10 03:06] LABS: Appearance,Urine Cloudy (Clear); Bilirubin,Urine Negative (Negative); Blood,Urine Small (Negative); Color,Urine Yellow; Glucose,Urine (UA) Negative (Negative); Hyaline Casts,Urine 3 /lpf (0-2); Ketones,Urine 1+ (Negative); Leukocyte Esterase,Urine Moderate (Negative); Mucus,Urine Few /hpf; Nitrite,Urine Negative (Negative); Protein,Urine Trace (Negative); RBC,Urine 3 /hpf (0-5); Specific Gravity,Urine 1.018 (1.001-1.035); Squamous Epithelial Cell,Urine 6 /hpf (0-4); Urobilinogen,Urine <2.0 mg/dL (<2.0); WBC,Urine 7 /hpf (0-5)
[2017-10-10 04:00] LABS: Basophils % (A) 0 %; Eosinophils # (A) 0.2 k/uL (0-0.7); Eosinophils % (A) 2 %; HCT 43.9 % (34.0-46.0); HGB 13.8 gm/dL (11.4-16.0); Lymphocytes # (A) 1.4 k/uL (1.0-4.8); Lymphocytes % (A) 14 %; MCH 28.6 pg (25.0-35.0); MCHC 31.5 g/dL (31.0-37.0); MCV 90.9 fL (80.0-100.0); Mean Platelet Volume 7.7; Monocytes # (A) 0.4 k/uL (0-1.0); Monocytes % (A) 4 %; Neutrophils # (A) 7.5 k/uL (1.3-7.7); Neutrophils % (A) 79 %; Platelet Count 203 k/uL (150-450); RBC 4.83 m/uL (3.80-5.40); RDW 13.4 % (11.5-15.5); WBC 9.6 k/uL (3.8-10.6)
[2017-10-10 04:12] LABS: ALT 20 U/L (9-52); AST 16 U/L (14-36); Albumin 4.2 g/dL (3.5-5.0); Alkaline Phosphatase 98 U/L (38-126); Amylase 46 U/L (30-110); Anion Gap 13 mmol/L; Blood Urea Nitrogen 13 mg/dL (7-17); Calcium 9.7 mg/dL (8.4-10.2); Carbon Dioxide 24 mmol/L (22-30); Chloride 102 mmol/L (98-107); Glucose 136 mg/dL (74-99); Lipase 48 U/L (23-300); Potassium 4.1 mmol/L (3.5-5.1); Sodium 139 mmol/L (137-145); Total Protein 7.2 g/dL (6.3-8.2)
--- NOTE | 2017-10-10 04:22 | XR ---
EXAM: XR Right Ribs, 2 Views CLINICAL HISTORY: ITS.REASON XR Reason: Pain TECHNIQUE: Frontal and oblique views of the right ribs. COMPARISON: 09/10/2017 chest radiograph FINDINGS: Lungs: Unremarkable as visualized. No consolidation. Pleural space: Unremarkable. No pneumothorax. Bones/joints: The right-sided ribs demonstrate no definitive fracture or traumatic malalignment. There is a partially visualized fracture at the proximal left humerus, also noted previously.. IMPRESSION: 1. No visualized rib injury. 2. Partially visualized fracture of the proximal left humerus, also seen on previous radiograph.
[2017-10-10] MEDS ORDERED: RX INFO: IV CONTRAST WAS GIVEN 1 EACH MISC MISCELLANE PRN (05:08)
--- NOTE | 2017-10-10 05:48 | XR ---
EXAM: XR Abdomen 2 Views With XR Chest CLINICAL HISTORY: ITS.REASON XR Reason: Pain TECHNIQUE: Frontal views of the abdomen/pelvis. COMPARISON: 10/10/2017 FINDINGS: Pleural space: Possible small right pleural effusion. No pneumothorax. Gastrointestinal tract: Moderate colonic stool burden. Nonspecific small bowel gas pattern. No dilation. Bones/joints: Degenerative disc changes and mild levocurvature of the lumbar spine. Partially visualized left femur hardware. IMPRESSION: 1. Moderate colonic stool burden. Correlate for constipation.
--- NOTE | 2017-10-10 06:24 | CT ---
EXAM: CT Angiography Chest With Intravenous Contrast CLINICAL HISTORY: ITS.REASON CT Reason: pe protocol TECHNIQUE: Axial computed tomographic angiography images of the chest with intravenous contrast using pulmonary embolism protocol. CTDI is 48.2 mGy and DLP is 510.4 mGy-cm. This CT exam was performed using one or more of the following dose reduction techniques: automated exposure control, adjustment of the mA and/or kV according to patient size, and/or use of iterative reconstruction technique. MIP reconstructed images were created and reviewed. Coronal and sagittal reformatted images were created and reviewed. COMPARISON: No relevant prior studies available. FINDINGS: Pulmonary arteries: Acute pulmonary embolus with occlusion within 1 of the right lower lung subsegmental branches. Nonocclusive emboli noted within the right upper segmental and subsegmental branches questionably within a left lower lobe subsegmental branch. Focal airspace disease in the periphery of the right lower lobe, possibly related to infarct associated with the occlusive regional pulmonary embolus. Aorta: No acute findings. No thoracic aortic aneurysm. Lungs: Mild lingular scarring. Right lower lobe airspace disease favoring atelectasis. Calcified granuloma in the right upper lobe. No mass. Pleural space: Small right pleural effusion. No pneumothorax. Heart: Slight prominence to the right ventricle may be related to cardiac cycle with mild right ventricular strain not completely excluded. No significant pericardial effusion. Bones/joints: Degenerative disc disease with multilevel disc space height loss and osteophytosis. No acute fracture. No dislocation. Soft tissues: Unremarkable. Lymph nodes: Unremarkable. No enlarged lymph nodes. Kidneys and ureters: Left parapelvic cysts or mild caliectasis. IMPRESSION: 1. Multifocal acute pulmonary emboli as above. One of these is occlusive in a right lower lobe subsegmental branch, with more distal focal airspace disease possibly representing pulmonary infarct. 2. Other nonacute findings as discussed above. [employer] 10/10/17 06:21 Call Doctor Regarding Pulmonary Embolism, called Dr. Julian on 10/10 06:21 (-05:00)
[2017-10-10] MEDS ORDERED: HEPARIN SODIUM,PORCINE 5,000 UNIT/ML 1 ML VIAL IV ONE (06:29)
[2017-10-10] MEDS ORDERED: HEPARIN SODIUM,PORCINE 5,000 UNIT/ML 1 ML VIAL IV PRN (06:29)
[2017-10-10] MEDS ORDERED: HEPARIN SOD,PORK IN 0.45% NACL 25,000 UNIT in 0.45% NACL 1 500ML.BAG IV SCH (06:30)
[2017-10-10] MEDS ORDERED: traMADol 50 MG TAB PO PRN (06:33)
[2017-10-10] MEDS ORDERED: NALOXONE 0.4 MG/ML 1 ML VIAL IV PRN (06:33)
[2017-10-10] MEDS ORDERED: SODIUM CHLORIDE 0.9% 1,000 ML IV SCH (06:45)
[2017-10-10 09:31] VITALS: BMI 32.5
[2017-10-10 09:54] VITALS: RESP 18
[2017-10-10] MEDS ORDERED: HYDROcodone/APAP 5-325MG 1 EACH TAB PO PRN (11:51)
--- NOTE | 2017-10-10 12:44 | HP ---
HISTORY AND PHYSICAL DATE OF ADMISSION: 10/10/2017 PRESENTING COMPLAINT: Right-sided chest pain. HISTORY OF PRESENTING COMPLAINT: A very pleasant 77-year-old patient of Dr. Colmenares who was here recently in the hospital with a left humerus fracture, arm was put in a sling. Seen by Orthopedics for outpatient followup. Patient is otherwise rather healthy. She has not been very active since her left arm has been in a sling, sometimes sits around. Patient for few days was having some shortness of breath, getting a bit more short of breath yesterday with some right-sided pleuritic chest pain, worse with deep breathing. Decided to come in. CT angiogram did show some distal pulmonary embolism. Patient's last admission also had a CT angiogram that was negative. Patient was put on IV heparin in the ER, feeling much better. Patient's friend is at the bedside. REVIEW OF SYSTEMS: CONSTITUTIONAL: None. HEENT: None. RESPIRATORY: As above. CARDIOVASCULAR: None. GASTROINTESTINAL: None. GENITOURINARY: None. MUSCULOSKELETAL: Left humerus pain. DERMATOLOGICAL: None. HEMATOLOGICAL: None. LYMPHATIC: None. PSYCHIATRY: None. NEUROLOGICAL: None. PAST MEDICAL HISTORY: Stress test 5 years ago, negative. PAST SURGICAL HISTORY: Appendectomy, bowel resection, cholecystectomy, hysterectomy, left hip fracture with surgery in the past, left humerus fracture recently with a sling in place. SOCIAL HISTORY: Lives by herself. No smoking. No alcohol. FAMILY HISTORY: Colon cancer. HOME MEDICATIONS: [place] p.r.n. ALLERGIES: None. PHYSICAL EXAMINATION: Temperature 97.8 pulse 97, respiratory 18, blood pressure 167/67, pulse ox 97% on room air. GENERAL APPEARANCE: Well built, BMI 32.6 sitting in a chair, comfortable, smiling. EYES: Pupils equal, conjunctivae normal. HEENT: External ears and oral cavity normal. NECK: JVD not raised. Mass not palpable. RESPIRATORY: Effort normal. LUNGS: Fair entry. CARDIOVASCULAR: First and second sounds are normal. No edema. ABDOMEN: Soft, nontender. Liver and spleen not palpable. LYMPHATIC: No lymph node palpable in neck or axillae. PSYCHIATRY: Alert and oriented x3. Mood and affect normal. NEUROLOGICAL: Pupils equal. Cranial nerves grossly intact. Power and sensation grossly intact. EXTREMITIES: Left arm in a sling. INVESTIGATIONS: White count 9.6, hemoglobin 13.8, potassium 4.1, BUN and creatinine are normal. Chest CTA showed occlusion within one of the right lower lobes subsegmental branches. Nonocclusive emboli noted the right upper segmental and subsegmental branches, questionably be in the left lower subsegmental branch. Right lower lobe shows possible infarct. ASSESSMENT: 1. Acute pulmonary embolism in a patient who has not been very active since a loose humerus fracture. Patient is comfortable. Walking around, good pulse ox on room air. 2. IV heparin monitoring. 3. Left humerus fracture, left arm in a sling. 4. Obesity, body mass index 32.6. PLAN: Patient currently on IV heparin. Doing rather well. Symptoms are well-controlled. Did discuss with the patient and , might even considering sending her home of she continues to do well. MMODL / IJN: [id number] /
[2017-10-10 14:22] VITALS: BP 125/65; PULSE 69; TEMP 97.4
[2017-10-10] MEDS ORDERED: ENOXAPARIN 80 MG/0.8 ML SYRINGE SQ STA (14:27)
[2017-10-10] MEDS ORDERED: APIXABAN 5 MG TAB PO SCH ×2 (14:30)
--- NOTE | 2017-10-10 23:11 | DS ---
DISCHARGE SUMMARY DATE OF ADMISSION: 10/10/2017. DATE OF DISCHARGE: 10/10/2017 FINAL DIAGNOSES: 1. Acute pulmonary embolism in a patient who has not been active. 2. IV heparin monitoring. 3. Left humerus fracture. 4. Left arm in a sling, subacute. 5. Obesity, BMI of 32.6. HOSPITAL COURSE: This is a patient who was recently in the hospital with a left humerus fracture, has not been very active since then. According to the friend, has been quite a bit sitting around, now presented with some right-sided pleuritic chest pain, some shortness of breath, found to have pulmonary embolism. As patient is doing well, up and about, pulse oxing well. Patient is put on Eliquis and being discharged. EXAM: LUNGS: Fair air entry. Left arm in a sling. Care was discussed with the patient. Questions were answered. 1. Eliquis 10 mg b.i.d. for 7 days, then 5 mg b.i.d. to be given for a total of 3 months. 2. Sarita 5 one tablet q.4h p.r.n. Follow up with Dr. Colmenares on to . Care was discussed with the patient. MMODL / IJN: [id number] /
== END 2017-10-10 15:05 | disposition home or self-care (01) | DRG 176 ==
LOC: EC 02:34 → 6SEL 06:34
PROVIDERS: ADMIT Hospitalist; ATTEND Hospitalist
DX: I26.99 Other pulmonary embolism without acute cor pulmonale (principal); E66.9 Obesity, unspecified; S42.302A Unspecified fracture of shaft of humerus, left arm, initial encounter for closed fracture; Z68.32 Body mass index [BMI] 32.0-32.9, adult; Z80.0 Family history of malignant neoplasm of digestive organs; Z79.891 Long term (current) use of opiate analgesic; Z90.89 Acquired absence of other organs; Z90.49 Acquired absence of other specified parts of digestive tract; Z90.710 Acquired absence of both cervix and uterus; Z91.81 History of falling; Z79.899 Other long term (current) drug therapy; Z80.1 Family history of malignant neoplasm of trachea, bronchus and lung; Z82.3 Family history of stroke
CPT/HCPCS: 36415; 71275; 74018; 80053; 81001; 82150; 83605; 83690; 85025; 85379; 85730; 87040; 87086; 87502; 96365; 96366; 96372; 96376; 99285

== ENCOUNTER → 2018-11-04 | Outpatient (CLI) | payer MEDICARE, OTHER ==
--- NOTE | 2018-11-05 13:42 | MM ---
Reason for exam: screening (asymptomatic). History: Benign excisional biopsy of the left breast, 2016. Physical Findings: A clinical breast exam by your physician is recommended on an annual basis and results should be correlated with mammographic findings. MG 3D Screening Mammo W/Cad Bilateral CC and MLO view(s) were taken. Stable benign appearing bilateral calcifications. There is chronic nodularity bilaterally, stable. ASSESSMENT: Benign, BI-RAD 2 RECOMMENDATION: Routine screening mammogram of both breasts in 1 year.
== END ==
LOC: RADMAMWWP 14:37
PROVIDERS: ATTEND Family Medicine
DX: Z12.31 Encounter for screening mammogram for malignant neoplasm of breast (principal)
CPT/HCPCS: 77063; 77067

== ENCOUNTER → 2020-02-24 | Outpatient (CLI) | payer MEDICARE, OTHER ==
--- NOTE | 2020-02-25 10:05 | MM ---
Reason for exam: screening (asymptomatic). Last mammogram was performed 1 year and 4 months ago. History: Patient is postmenopausal. Benign excisional biopsy of the left breast, 2016. Took hormonal contraceptives for 6 years beginning at age 22. Took estrogen for 1 month. Physical Findings: A clinical breast exam by your physician is recommended on an annual basis and results should be correlated with mammographic findings. MG 3D Screening Mammo W/Cad Bilateral CC and MLO view(s) were taken. Prior study comparison: November 04, 2018, bilateral MG 3d screening mammo w/cad. The breast tissue is heterogeneously dense. This may lower the sensitivity of mammography. Stable benign calcifications in the left breast. There is no discrete abnormality. No significant changes when compared with prior studies. ASSESSMENT: Benign, BI-RAD 2 RECOMMENDATION: Routine screening mammogram of both breasts in 1 year.
== END | disposition home or self-care (01) ==
LOC: RADMAMWWP 08:08
PROVIDERS: ATTEND Family Medicine
DX: Z12.31 Encounter for screening mammogram for malignant neoplasm of breast (principal)
CPT/HCPCS: 77063; 77067

== ENCOUNTER → 2020-02-27 | Outpatient (CLI) | payer MEDICARE, OTHER ==
--- NOTE | 2020-02-27 11:33 | US ---
EXAMINATION TYPE: US thyroid st tissue head/neck DATE OF EXAM: 02/27/2020 COMPARISON: NONE CLINICAL HISTORY: R22.1 Localized swelling, mass and lump, neck. Scanning was performed directly over palpable left neck as pointed out by patient as well as contrala teral side for comparison. Directly over palpable there is a isoechoic avascular ovoid area measuring 1.1 x 0.4 cm. This appears the same as surrounding tissue and appears similar to right side. IMPRESSION: Indeterminate focus in the left neck, additional imaging CT and/or MRI with overlying marker may be o f benefit to further characterize.
== END | disposition home or self-care (01) ==
LOC: RADUSWWP 10:40
PROVIDERS: ATTEND Family Medicine
DX: R22.1 Localized swelling, mass and lump, neck (principal)
CPT/HCPCS: 76536

== ENCOUNTER → 2021-04-18 | Outpatient (CLI) | payer MEDICARE, OTHER ==
--- NOTE | 2021-04-19 09:24 | MM ---
Reason for exam: screening (asymptomatic). Last mammogram was performed 1 year and 2 months ago. History: Patient is postmenopausal. Benign excisional biopsy of the left breast, 2016. Took hormonal contraceptives for 6 years beginning at age 22. Took estrogen for 1 month. Physical Findings: A clinical breast exam by your physician is recommended on an annual basis and results should be correlated with mammographic findings. MG 3D Screening Mammo W/Cad Bilateral CC and MLO view(s) were taken. Prior study comparison: February 24, 2020, bilateral MG 3d screening mammo w/cad. November 04, 2018, bilateral MG 3d screening mammo w/cad. There are scattered fibroglandular densities. Benign appearing bilateral calcifications. There is chronic nodularity bilaterally, stable. ASSESSMENT: Benign, BI-RAD 2 RECOMMENDATION: Routine screening mammogram of both breasts in 1 year.
== END | disposition home or self-care (01) ==
LOC: RADMAMWWP 07:26
PROVIDERS: ATTEND Family Medicine
DX: Z12.31 Encounter for screening mammogram for malignant neoplasm of breast (principal); Z79.3 Long term (current) use of hormonal contraceptives; Z78.0 Asymptomatic menopausal state
CPT/HCPCS: 77063; 77067

== ENCOUNTER 2021-08-27 22:31 | Emergency (ER) | payer MEDICARE, OTHER ==
[2021-08-27 23:03] VITALS: RESP 18
[2021-08-27 23:59] LABS: Basophils # (A) 0.1 k/uL (0-0.2); Basophils % (A) 1 %; Eosinophils # (A) 0.1 k/uL (0-0.7); Eosinophils % (A) 2 %; HCT 47.1 % (34.0-46.0); HGB 15.3 gm/dL (11.4-16.0); Lymphocytes # (A) 0.4 k/uL (1.0-4.8); Lymphocytes % (A) 5 %; MCH 28.9 pg (25.0-35.0); MCHC 32.4 g/dL (31.0-37.0); MCV 89.1 fL (80.0-100.0); Mean Platelet Volume 8.1; Monocytes # (A) 0.3 k/uL (0-1.0); Monocytes % (A) 5 %; Neutrophils # (A) 5.6 k/uL (1.3-7.7); Neutrophils % (A) 87 %; Platelet Count 198 k/uL (150-450); RBC 5.29 m/uL (3.80-5.40); RDW 12.7 % (11.5-15.5); WBC 6.5 k/uL (3.8-10.6)
--- NOTE | 2021-08-28 00:02 | XR ---
EXAMINATION TYPE: XR chest 1V portable DATE OF EXAM: 08/27/2021 COMPARISON: 09/10/2017 HISTORY: Weakness TECHNIQUE: FINDINGS: There is no heart failure nor confluent pneumonic infiltrate. Costophrenic angles are clear Bony thorax is intact. There is old left humeral neck fracture. IMPRESSION: No active cardiopulmonary disease. No change.
[2021-08-28 00:10] LABS: ALT 21 U/L (4-34); AST 26 U/L (14-36); African American GFR (CKD) >90 (>60 ml/min/1.73 sqM); Albumin 4.6 g/dL (3.5-5.0); Alkaline Phosphatase 101 U/L (38-126); Anion Gap 10 mmol/L; Blood Urea Nitrogen 10 mg/dL (7-17); Calcium 9.7 mg/dL (8.4-10.2); Carbon Dioxide 26 mmol/L (22-30); Chloride 99 mmol/L (98-107); Glucose 163 mg/dL (74-99); Magnesium 1.6 mg/dL (1.6-2.3); Non-African American GFR(CKD) 85 (>60 ml/min/1.73 sqM); Potassium 4.3 mmol/L (3.5-5.1); Sodium 135 mmol/L (137-145); Total Bilirubin 0.8 mg/dL (0.2-1.3); Total Protein 7.7 g/dL (6.3-8.2)
[2021-08-28 01:11] LABS: Partial Thromboplastin Time 25.5 sec (22.0-30.0); Prothrombin Time 10.7 sec (9.0-12.0)
[2021-08-28] MEDS ORDERED: SODIUM CHLORIDE 0.9% 50 ML IVPB ONE (04:00)
[2021-08-28] MEDS ORDERED: BAMLANIVIMAB (EUA) 700 MG, ETESEVIMAB (EUA) 1,400 MG in SODIUM CHLORIDE 0.9% 100 ML IVPB ONE (04:00)
--- NOTE | 2021-08-28 04:50 | ED ---
Weakness HPI - General Chief complaint: Weakness Stated complaint: Nausea Time Seen by Provider: 08/27/21 23:22 Source: patient Mode of arrival: wheelchair Limitations: no limitations - History of Present Illness MD Complaint: generalized weakness, lack of energy -: days(s) Location: generalized Severity: moderate Consistency: constant Improves with: rest Worsens with: exertion Associated Symptoms: fever/chills, headaches, myalgias - Related Data Home Medications Medication Instructions Recorded Confirmed Aspirin EC [Ecotrin Low Dose] 81 mg PO DAILY 05/03/18 05/03/18 Cholecalciferol [Vitamin D3] 1,000 unit PO DAILY 05/03/18 05/03/18 Allergies Allergy/AdvReac Type Severity Reaction Status Date / Time No Known Allergies Allergy Verified 05/03/18 14:44 Review of Systems ROS Statement: Those systems with pertinent positive or pertinent negative responses have been documented in the HPI. ROS Other: All systems not noted in ROS Statement are negative. Constitutional: Reports: fever, chills, weakness Respiratory: Reports: cough. Denies: dyspnea, wheezes Cardiovascular: Denies: chest pain, palpitations, edema, syncope Gastrointestinal: Denies: abdominal pain, vomiting, diarrhea Genitourinary: Denies: dysuria, frequency Musculoskeletal: Denies: back pain Skin: Denies: rash Neurological: Denies: headache, weakness, numbness Past Medical History Past Medical History: Syncope Additional Past Medical History / Comment(s): Vertigo with fall and L hip fracture 12 yrs ago, 09/10/17 fall with L humeral neck fracture, bradycardia, past R ankle and R patellar fracture, migraines. History of Any Multi-Drug Resistant Organisms: None Reported Past Surgical History: Appendectomy, Bladder Surgery, Bowel Resection, Cho lecystectomy, Heart Catheterization, Hysterectomy, Orthopedic Surgery Additional Past Surgical History / Comment(s): L wrist surgery pins since removed, L hip fx with plates/screws, colonoscopy with benign polyp, rectocele/cystocele, bowel resection for twisted bowel-18 inches removed, 2010 normal cardiac cath Past Psychological History: No Psychological Hx Reported Smoking Status: Never smoker Past Alcohol Use History: None Reported Past Drug Use History: None Reported - Past Family History Mother Family Medical History: Cancer Additional Family Medical History / Comment(s): Mother survived colon cancer, she lived to be 91 yrs old. Father Family Medical History: Cancer Additional Family Medical History / Comment(s): lung cancer, father was a smoker. Sister(s) Family Medical History: AFIB, CVA/TIA General Exam Limitations: no limitations General appearance: alert, in no apparent distress Head exam: Present: atraumatic, normocephalic Eye exam: Present: normal appearance. Absent: scleral icterus, conjunctival injection Neck exam: Present: normal inspection Respiratory exam: Present: normal lung sounds bilaterally. Absent: respiratory distress, wheezes, rales, rhonchi, stridor Cardiovascular Exam: Present: regular rate, normal rhythm, normal heart sounds. Absent: systolic murmur, diastolic murmur, rubs, gallop GI/Abdominal exam: Present: soft. Absent: distended, tenderness, guarding, rebound, rigid, mass Extremities exam: Present: normal inspection, normal capillary refill. Absent: pedal edema, calf tenderness Back exam: Present: normal inspection. Absent: CVA tenderness (R), CVA tenderness (L) Neurological exam: Present: alert Skin exam: Present: warm, dry, intact, normal color. Absent: rash Course Vital Signs 08/27/21 08/27/21 08/28/21 22:55 23:15 01:24 Temperature 98.6 F Pulse Rate 88 101 H Respiratory 18 18 18 Rate Blood Pressure 139/70 144/74 O2 Sat by Pulse 96 92 L Oximetry 08/28/21 08/28/21 08/28/21 03:20 05:19 06:05 Temperature 97.2 F L Pulse Rate 80 67 49 L Respiratory 18 18 18 Rate Blood Pressure 106/70 108/53 106/61 O2 Sat by Pulse 96 96 97 Oximetry Medical Decision Making - Lab Data Result diagrams: 08/27/21 23:49 08/27/21 23:49 Lab Results 08/27/21 08/27/21 08/27/21 Range/Units 23:05 23:49 23:49 WBC 6.5 (3.8-10.6) k/uL RBC 5.29 (3.80-5.40) m/uL Hgb 15.3 (11.4-16.0) gm/dL Hct 47.1 H (34.0-46.0) % MCV 89.1 (80.0-100.0) fL MCH 28.9 (25.0-35.0) pg MCHC 32.4 (31.0-37.0) g/dL RDW 12.7 (11.5-15.5) % Plt Count 198 (150-450) k/uL MPV 8.1 Neutrophils % 87 % Lymphocytes % 5 % Monocytes % 5 % Eosinophils % 2 % Basophils % 1 % Neutrophils # 5.6 (1.3-7.7) k/uL Lymphocytes # 0.4 L (1.0-4.8) k/uL Monocytes # 0.3 (0-1.0) k/uL Eosinophils # 0.1 (0-0.7) k/uL Basophils # 0.1 (0-0.2) k/uL PT 10.7 (9.0-12.0) sec INR 1.0 (<1.2) APTT 25.5 (22.0-30.0) sec Sodium (137-145) mmol/L Potassium (3.5-5.1) mmol/L Chloride (98-107) mmol/L Carbon Dioxide (22-30) mmol/L Anion Gap mmol/L BUN (7-17) mg/dL Creatinine (0.52-1.04) mg/dL Est GFR (CKD-EPI)AfAm (>60 ml/min/1.73 sqM) Est GFR (CKD-EPI)NonAf (>60 ml/min/1.73 sqM) Glucose (74-99) mg/dL Plasma Lactic Acid Jeffery (0.7-2.0) mmol/L Calcium (8.4-10.2) mg/dL Magnesium (1.6-2.3) mg/dL Total Bilirubin (0.2-1.3) mg/dL AST (14-36) U/L ALT (4-34) U/L Alkaline Phosphatase (38-126) U/L Troponin I (0.000-0.034) ng/mL Total Protein (6.3-8.2) g/dL Albumin (3.5-5.0) g/dL Coronavirus (PCR) Detected A (Not Detectd) 08/27/21 08/27/21 08/27/21 Range/Units 23:49 23:49 23:49 WBC (3.8-10.6) k/uL RBC (3.80-5.40) m/uL Hgb (11.4-16.0) gm/dL Hct (34.0-46.0) % MCV (80.0-100.0) fL MCH (25.0-35.0) pg MCHC (31.0-37.0) g/dL RDW (11.5-15.5) % Plt Count (150-450) k/uL MPV Neutrophils % % Lymphocytes % % Monocytes % % Eosinophils % % Basophils % % Neutrophils # (1.3-7.7) k/uL Lymphocytes # (1.0-4.8) k/uL Monocytes # (0-1.0) k/uL Eosinophils # (0-0.7) k/uL Basophils # (0-0.2) k/uL PT (9.0-12.0) sec INR (<1.2) APTT (22.0-30.0) sec Sodium 135 L (137-145) mmol/L Potassium 4.3 (3.5-5.1) mmol/L Chloride 99 (98-107) mmol/L Carbon Dioxide 26 (22-30) mmol/L Anion Gap 10 mmol/L BUN 10 (7-17) mg/dL Creatinine 0.63 (0.52-1.04) mg/dL Est GFR (CKD-EPI)AfAm >90 (>60 ml/min/1.73 sqM) Est GFR (CKD-EPI)NonAf 85 (>60 ml/min/1.73 sqM) Glucose 163 H (74-99) mg/dL Plasma Lactic Acid Jeffery 1.9 (0.7-2.0) mmol/L Calcium 9.7 (8.4-10.2) mg/dL Magnesium 1.6 (1.6-2.3) mg/dL Total Bilirubin 0.8 (0.2-1.3) mg/dL AST 26 (14-36) U/L ALT 21 (4-34) U/L Alkaline Phosphatase 101 (38-126) U/L Troponin I <0.012 (0.000-0.034) ng/mL Total Protein 7.7 (6.3-8.2) g/dL Albumin 4.6 (3.5-5.0) g/dL Coronavirus (PCR) (Not Detectd) Disposition Clinical Impression: COVID-19 Disposition: HOME SELF-CARE Condition: Fair Instructions (If sedation given, give patient instructions): Coronavirus Disease 2019 (COVID-19) Is patient prescribed a controlled substance at d/c from ED?: No Referrals: Alex Colmenares MD [Primary Care Provider] - 1-2 days
[2021-08-28 06:06] VITALS: BP 106/61; PULSE 49; TEMP 97.2
== END 2021-08-28 06:06 | disposition home or self-care (01) ==
LOC: EC 22:31
DX: U07.1 COVID-19 (principal); Z79.82 Long term (current) use of aspirin; Z90.49 Acquired absence of other specified parts of digestive tract; Z90.710 Acquired absence of both cervix and uterus
CPT/HCPCS: 99285; M0245; 36415; 71045; 80053; 83605; 83735; 84484; 85025; 85610; 85730; 87635; 93005

== ENCOUNTER 2022-11-28 06:32 | Day surgery (SDC) | payer MEDICARE, OTHER ==
[~2022-11-28 06:32] MED LIST: ALPRAZolam 0.25 MG TAB PO PRN; ALPRAZolam 0.5 MG TAB PO PRN; ASPIRIN 325 MG TAB PO STA; NITROGLYCERIN SL TABS 0.4 MG TAB SUBLINGUAL PRN
[2022-11-28] MEDS ORDERED: SODIUM CHLORIDE 0.9% 1,000 ML IV ONE (07:03)
[2022-11-28 07:18] VITALS: RESP 16; TEMP 97.7
[2022-11-28] MEDS ORDERED: VERAPAMIL 2.5 MG/ML 2 ML AMP ONE (08:42)
[2022-11-28] MEDS ORDERED: HEPARIN SODIUM 1,000 UN/ML (10ML VL) ONE (08:59)
[2022-11-28] MEDS ORDERED: fentaNYL (PF) 50 MCG/ML 2 ML AMP ONE (08:59)
[2022-11-28] MEDS ORDERED: MIDAZOLAM 2 MG/2 ML VIAL IV ONE (09:02)
[2022-11-28] MEDS ORDERED: fentaNYL (PF) 50 MCG/ML 2 ML AMP IV ONE (09:02)
[2022-11-28] MEDS ORDERED: LIDOCAINE 1% INJ 10MG/ML (5 ML VIAL-PF) SQ ONE (09:04)
[2022-11-28] MEDS: VERAPAMIL SYRINGE (5 MG/10 ML) INTRAARTER ONE ×2 (09:05→09:20)
[2022-11-28] MEDS ORDERED: HEPARIN SODIUM 1,000 UN/ML (10ML VL) IV ONE (09:12)
[2022-11-28] MEDS ORDERED: IOPAMIDOL-370 125ML BTL INJ ONE (09:21)
--- NOTE | 2022-11-28 09:59 | CC ---
CARDIAC CATHETERIZATION REPORT INDICATION: New onset atrial fibrillation with an abnormal stress test showing ischemia in LAD distribution and exertional shortness of breath. PROCEDURE NOTE: After obtaining informed consent, left heart catheterization and coronary angiogram were performed via the right radial artery using standard Obie catheters. The patient tolerated the procedure well without any obvious immediate complications. The patient received moderate conscious sedation. Total sedation time was 16 minutes. Right radial artery access was obtained using modified Seldinger technique. Catheters and wires were floated into the ascending aorta under fluoroscopic guidance. The patient received 5 mg of verapamil and 4000 units of heparin per protocol. A TR band was used for hemostasis at the end of the procedure. HEMODYNAMICS: Left ventricular end-diastolic pressure is 16 mm. There is no significant gradient across the aortic valve. Left ventriculogram: Left ventriculogram is not performed. ANGIOGRAPHIC DATA: Right coronary artery: Right coronary artery is a large dominant vessel and is free of significant stenosis. There is a mild atherosclerotic plaque in its proximal part. Left main coronary artery is a large vessel and is free of stenosis. It divides into left anterior descending coronary artery, small ramus intermedius, and circumflex coronary artery. Ramus shows a mild atherosclerotic plaque in its proximal portion. 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 PLAN: I reviewed angiographic data with the patient and told her that her stress test is a false-positive stress test and her treatment is going to be in the form of aggressive risk factor modification and continued medical therapy. MMODL / IJN: [id number] /
[2022-11-28] MEDS ORDERED: RX INFO: IV CONTRAST WAS GIVEN 1 EACH MISC MISCELLANE PRN (10:01)
[2022-11-28] MEDS ORDERED: SODIUM CHLORIDE 0.9% 1,000 ML IV SCH (10:15)
[2022-11-28] MEDS ORDERED: ACETAMINOPHEN TAB 325 MG TAB ONE (12:21)
[2022-11-28 13:39] VITALS: BP 150/70; PULSE 77
== END 2022-11-28 14:36 | disposition home or self-care (01) ==
LOC: CATHCVL 06:32
PROVIDERS: ATTEND Internal Medicine Cardiovascular Disease
DX: I25.10 Atherosclerotic heart disease of native coronary artery without angina pectoris (principal); I48.91 Unspecified atrial fibrillation; R94.39 Abnormal result of other cardiovascular function study
CPT/HCPCS: 93458; C1769; C1894; J2250; J2001; J3010; J1644; Q9967

== ENCOUNTER → 2023-05-07 | Outpatient (CLI) | payer MEDICARE, OTHER ==
--- NOTE | 2023-05-07 12:44 | MM ---
Reason for Exam: Additional evaluation requested from prior study. Last screening mammogram was performed 11 month(s) ago. Patient History: Menarche at age 15. First Full-Term at age 18. Hysterectomy at age 28. Postmenopausal. Estrogen for 1 month. Hormonal Contraceptives for 6 years from age 22 until age 28. 06/04/2022, Stereotactic Core Biopsy on the Left side. 2016, Benign Excisional Biopsy on the left side. Risk Values: Leona 5 year model risk: 1.6%. NCI Lifetime model risk: 2.3%. Prior Study Comparison: 11/04/2018 Bilateral Screening Mammogram, [facility]. 02/24/2020 Bilateral Screening Mammogram, [facility]. 04/18/2021 Bilateral Screening Mammogram, [facility]. 05/11/2022 Bilateral MG 3D screening mammo w/cad, [facility]. 06/01/2022 Left MG 3D work up w/cad LT - 2, [facility]. Tissue Density: There are scattered fibroglandular densities. Findings: Analyzed By CAD. Prior benign biopsy of left-sided microcalcifications. Several residual calcifications remain. No new clusters seen. No mass or distortion. Overall Assessment: Benign, BI-RAD 2 Management: Screening Mammogram of both breasts in 1 year. . Results were given to the patient verbally at the time of exam. Patient should continue monthly self-breast exams. A clinical breast exam by your physician is recommended on an annual basis. This exam should not preclude additional follow-up of suspicious palpable abnormalities. Note on Leona scores and lifetime risk: 1. A Leona score greater than 3% is considered moderate risk. If this is the case, consider specialist referral to assess eligibility for a risk reducing agent. 2. If overall lifetime risk for the development of breast cancer is 20% or higher, the patient may qualify for future screening with alternating mammogram and breast MRI. Electronically signed and approved by: Jay Guzman M.D. Radiologis
== END | disposition home or self-care (01) ==
LOC: RADMAMWWP 10:44
PROVIDERS: ATTEND Surgery
DX: R92.8 Other abnormal and inconclusive findings on diagnostic imaging of breast (principal); Z78.0 Asymptomatic menopausal state
CPT/HCPCS: 77066; G0279; 77062

== ENCOUNTER 2023-10-18 16:33 | Emergency (ER) | payer MEDICARE, OTHER ==
[2023-10-18 16:54] VITALS: RESP 16; TEMP 99.6
--- NOTE | 2023-10-18 18:42 | XR ---
EXAMINATION: XR chest 2V: 10/18/2023 6:02 PM CLINICAL INDICATION: cough TECHNIQUE: AP and lateral COMPARISON: 08/27/2021 FINDINGS: The lungs are clear. The pleural spaces are negative. The cardiac silhouette is mildly enlarged, stable. The skeletal structures and soft tissues are negative for acute findings. IMPRESSION: No acute radiographic process.
--- NOTE | 2023-10-18 18:44 | ED ---
General Adult HPI - General Chief complaint: Upper Respiratory Infection Stated complaint: cough,weakness Time Seen by Provider: 10/18/23 18:00 Source: patient, RN notes reviewed, old records reviewed Mode of arrival: wheelchair Limitations: no limitations - History of Present Illness Initial comments: This is an 83-year-old female who presents to the emergency department complaining that she has been coughing a lot over the last 24 hours. And today she felt very weak in the legs so she sat down. Patient states she did not get a flu shot. Patient denies any difficulty breathing or shortness of breath. Patient denies any sore throat. Patient has any chest pain or palpitations. Patient has any abdominal pain patient has nausea vomit diarrhea. Patient states she is just overall feeling tired and weak. And has a significant cough but no sputum production. Patient did not take any medications prior to arrival. - Related Data Home Medications Medication Instructions Recorded Confirmed Cholecalciferol [Vitamin D3 (25 1,000 unit PO DAILY 05/03/18 11/27/22 Mcg = 1000 Iu)] Apixaban [Eliquis] 5 mg PO BID 11/27/22 11/28/22 Ascorbic Acid [Vitamin C] 500 mg PO DAILY 11/27/22 11/27/22 Metoprolol Succinate (ER) [Toprol 25 mg PO DAILY 11/27/22 11/28/22 XL] Aspirin 325 mg PO ONCE 11/28/22 11/28/22 Previous Rx's Medication Instructions Recorded Oseltamivir [Tamiflu] 75 mg PO Q12HR #10 cap 10/18/23 Allergies Allergy/AdvReac Type Severity Reaction Status Date / Time No Known Allergies Allergy Verified 10/18/23 16:43 Review of Systems ROS Statement: Those systems with pertinent positive or pertinent negative responses have been documented in the HPI. ROS Other: All systems not noted in ROS Statement are negative. Past Medical History Past Medical History: Atrial Fibrillation, Chest Pain / Angina, Hypertension, Osteoarthritis (OA), Pulmonary Embolus (PE) Additional Past Medical History / Comment(s): Vertigo with fall and L hip fracture 12 yrs ago, 09/10/17 fall with L humeral neck fracture-no surg., bradycardia, past R ankle and R patellar fracture, migraines. SOB w/exertion, hx. PE after shoulder fx. History of Any Multi-Drug Resistant Organisms: None Reported Past Surgical History: Appendectomy, Bladder Surgery, Bowel Resection, Cholecystectomy, Heart Catheterization, Hysterectomy, Orthopedic Surgery Additional Past Surgical History / Comment(s): L wrist surgery pins since removed, ORIF L hip w/plates/screws, colonoscopy with benign polyp, rectocele/cystocele, bowel resection for twisted bowel-18 inches removed, 2010 normal cardiac cath Past Anesthesia/Blood Transfusion Reactions: No Reported Reaction Past Psychological History: No Psychological Hx Reported Smoking Status: Never smoker - Past Family History Mother Family Medical History: Cancer Additional Family Medical History / Comment(s): Mother survived colon cancer, she lived to be 91 yrs old. Father Family Medical History: Cancer Additional Family Medical History / Comment(s): lung cancer, father was a smoker. Sister(s) Family Medical History: AFIB, CVA/TIA General Exam - General Exam Comments Initial Comments: GENERAL: Patient is well-developed and well-nourished. Patient is nontoxic and well- hydrated and is in mild distress. ENT: Neck is soft and supple. No significant lymphadenopathy is noted. Oropharynx is clear. Moist mucous membranes. Neck has full range of motion without eliciting any pain. EYES: The sclera were anicteric and conjunctiva were pink and moist. Extraocular movements were intact and pupils were equal round and reactive to light. Eyelids were unremarkable. PULMONARY: Unlabored respirations. Good breath sounds bilaterally. No audible rales rhonchi or wheezing was noted. CARDIOVASCULAR: There is a regular rate and rhythm without any murmurs gallops or rubs. ABDOMEN: Soft and nontender with normal bowel sounds. SKIN: Skin is clear with no lesions or rashes and otherwise unremarkable. NEUROLOGIC: Patient is alert and oriented x3. Cranial nerves II through XII are grossly intact. Motor and sensory are also intact. Normal speech, volume and content. Symmetrical smile. MUSCULOSKELETAL: Normal extremities with adequate strength and full range of motion. PSYCHIATRIC: Normal psychiatric evaluation. Limitations: no limitations Course Vital Signs 10/18/23 16:41 Temperature 99.6 F Pulse Rate 91 Respiratory 16 Rate Blood Pressure 128/70 O2 Sat by Pulse 97 Oximetry Medical Decision Making - Medical Decision Making Was pt. sent in by a medical professional or institution (, PA, ADJUNCT TEACHER, urgent care, hospital, or halfway...) When possible be specific @ -No Did you speak to anyone other than the patient for history (EMS, parent, family, police, friend...)? What history was obtained from this source @ -No Did you review nursing and triage notes (agree or disagree)? Why? @ -I reviewed and agree with nursing and triage notes Were old charts reviewed (outside hosp., previous admission, EMS record, old EKG, old radiological studies, urgent care reports/EKG's, halfway records)? Report findings @ -No old charts were reviewed Differential Diagnosis (chest pain, altered mental status, abdominal pain women, abdominal pain men, vaginal bleeding, weakness, fever, dyspnea, syncope, headache, dizziness, GI bleed, back pain, seizure, CVA, palpatations, mental health, musculoskeletal)? @ -Influenza A, influenza B, COVID, RSV, pneumonia, bronchitis, upper respiratory infection, this is not an all-inclusive list EKG interpreted by me (3pts min.). @ -As above X-rays interpreted by me (1pt min.). @ -Chest x-ray shows no acute abnormality CT interpreted by me (1pt min.). @ -None done U/S interpreted by me (1pt. min.). @ -None done What testing was considered but not performed or refused? (CT, X-rays, U/S, labs)? Why? @ -None What meds were considered but not given or refused? Why? @ -None Did you discuss the management of the patient with other professionals (professionals i.e. , PA, ADJUNCT TEACHER, lab, RT, psych nurse, social media assistant, ship surveyor, teacher, planned giving officer, correctional casework specialist)? Give summary @ -No Was smoking cessation discussed for >3mins.? @ -No Was critical care preformed (if so, how long)? @ -No Were there social determinants of health that impacted care today? How? (Homelessness, low income, unemployed, alcoholism, drug addiction, transportation, low edu. Level, literacy, decrease access to med. care, snf, rehab)? @ -No Was there de-escalation of care discussed even if they declined (Discuss DNR or withdrawal of care, Hospice)? DNR status @ -No What co-morbidities impacted this encounter? (DM, HTN, Smoking, COPD, CAD, Cancer, CVA, ARF, Chemo, Hep., AIDS, mental health diagnosis, sleep apnea, morbid obesity)? @ -None Was patient admitted / discharged? Hospital course, mention meds given and route, prescriptions, significant lab abnormalities, going to OR and other pertinent info. @ -Patient was given Tamiflu and Motrin and Tylenol in the emergency department because she had influenza B. Patient was ambulated and was a little weak but still was able to get around fine and she is comfortable going home with the instructions that get her Tamiflu prescription and continue taking Motrin Tylenol for aches and pains Undiagnosed new problem with uncertain prognosis? @ -No Drug Therapy requiring intensive monitoring for toxicity (Heparin, Nitro, Insulin, Cardizem)? @ -No Were any procedures done? @ -No Diagnosis/symptom? @ -Influenza B Acute, or Chronic, or Acute on Chronic? @ -Acute Uncomplicated (without systemic symptoms) or Complicated (systemic symptoms)? @ -Complicated Side effects of treatment? @ -No Exacerbation, Progression, or Severe Exacerbation? @ -No Poses a threat to life or bodily function? How? (Chest pain, USA, DC, pneumonia, PE, COPD, DKA, ARF, appy, cholecystitis, CVA, Diverticulitis, Homicidal, Suicidal, threat to staff... and all critical care pts) @ -No - Lab Data Lab Results 10/18/23 Range/Units 16:46 Influenza Type A (PCR) Not Detected (Not Detectd) Influenza Type B (PCR) Detected A (Not Detectd) RSV (PCR) Not Detected (Not Detectd) SARS-CoV-2 (PCR) Not Detected (Not Detectd) Disposition Clinical Impression: Influenza B Disposition: HOME SELF-CARE Condition: Good Instructions (If sedation given, give patient instructions): Influenza (ED) Prescriptions: Oseltamivir [Tamiflu] 75 mg PO Q12HR #10 cap Is patient prescribed a controlled substance at d/c from ED?: No Referrals: Alex Colmenares MD [Primary Care Provider] - 1-2 days Time of Disposition: 18:43
[2023-10-18] MEDS: IBUPROFEN 600 MG TAB PO STA (18:46)
[2023-10-18] MEDS: OSELTAMIVIR 75 MG CAP PO STA (18:46)
[2023-10-18] MEDS: ACETAMINOPHEN TAB 500 MG TAB PO STA (18:47)
[2023-10-18 19:15] VITALS: BP 117/67; PULSE 96
== END 2023-10-18 18:55 | disposition home or self-care (01) ==
LOC: EC 16:33
DX: J10.1 Influenza due to other identified influenza virus with other respiratory manifestations (principal); I10 Essential (primary) hypertension; I48.91 Unspecified atrial fibrillation; Z79.82 Long term (current) use of aspirin; Z79.01 Long term (current) use of anticoagulants; Z20.822 Contact with and (suspected) exposure to COVID-19
CPT/HCPCS: 71046; 87636; 99285

== ENCOUNTER → 2024-02-21 | Outpatient (CLI) | payer MEDICARE, OTHER ==
[2024-02-21 09:29] LABS: Basophils % (A) 1 %; Eosinophils # (A) 0.3 k/uL (0-0.7); Eosinophils % (A) 5 %; HCT 49.5 % (34.0-46.0); HGB 15.2 gm/dL (11.4-16.0); Lymphocytes # (A) 1.6 k/uL (1.0-4.8); Lymphocytes % (A) 29 %; MCHC 30.7 g/dL (31.0-37.0); MCV 94.2 fL (80.0-100.0); Mean Platelet Volume 8.6; Monocytes # (A) 0.3 k/uL (0-1.0); Monocytes % (A) 6 %; Neutrophils # (A) 3.2 k/uL (1.3-7.7); Neutrophils % (A) 58 %; Platelet Count 202 k/uL (150-450); RBC 5.25 m/uL (3.80-5.40); RDW 12.8 % (11.5-15.5); WBC 5.4 k/uL (3.8-10.6)
[2024-02-21 15:21] LABS: ALT 14 U/L (8-44); AST 18 U/L (13-35); Albumin 4.3 g/dL (3.8-4.9); Albumin/Globulin Ratio 1.87 Ratio (1.60-3.17); Alkaline Phosphatase 82 U/L (41-126); BUN/Creat Ratio 13.62 Ratio (12.00-20.00); Blood Urea Nitrogen 10.9 mg/dL (9.0-27.0); Carbon Dioxide 27.1 mmol/L (21.6-31.8); Chloride 103 mmol/L (96-109); Chol/HDL Ratio 4.24 Ratio; Globulin 2.3 g/dL (1.6-3.3); Glucose 129 mg/dL (70-110); LDL Cholesterol,Calculated 101.9 mg/dL (0.0-131.0); Potassium 4.4 mmol/L (3.5-5.5); Sodium 143 mmol/L (135-145); Total Bilirubin 0.5 mg/dL (0.3-1.2); Total Protein 6.6 g/dL (6.2-8.2)
== END | disposition home or self-care (01) ==
LOC: LABWHC1 07:36
PROVIDERS: ATTEND Family Medicine
DX: E78.5 Hyperlipidemia, unspecified (principal); E11.9 Type 2 diabetes mellitus without complications; E55.9 Vitamin D deficiency, unspecified
CPT/HCPCS: 36415; 80053; 80061; 82306; 83036; 85025

== ENCOUNTER → 2024-06-12 | Outpatient (CLI) | payer MEDICARE, OTHER ==
--- NOTE | 2024-06-13 08:27 | MM ---
Reason for Exam: Screening (asymptomatic). Last mammogram was performed 1 year(s) and 1 month(s) ago. Patient History: Menarche at age 15. First Full-Term at age 18. Hysterectomy at age 28. Postmenopausal. Estrogen for 1 month. Hormonal Contraceptives for 6 years from age 22 until age 28. 06/04/2022, Stereotactic Core Biopsy on the Left side. 2016, Benign Excisional Biopsy on the left side. Risk Values: Leona 5 year model risk: 1.5%. NCI Lifetime model risk: 2.1%. Prior Study Comparison: 05/11/2022 Bilateral MG 3D screening mammo w/cad, [facility]. 06/01/2022 Left MG 3D work up w/cad LT - 2, [facility]. 05/07/2023 Bilateral MG 3D diag mammo w/cad [facility], [facility]. Tissue Density: There are scattered areas of fibroglandular density. Findings: Analyzed By CAD. Right breast: There is no suspicious group of microcalcifications or new suspicious mass. Benign-appearing calcifications right breast. Left breast: There is no suspicious group of microcalcifications or new suspicious mass. Benign-appearing calcifications left breast. Overall Assessment: Benign, BI-RAD 2 Management: Screening Mammogram of both breasts in [address] [facility] will attempt to contact patient to return for supplemental views and ultrasound if indicated. Patient should continue monthly self-breast exams. A clinical breast exam by your physician is recommended on an annual basis. This exam should not preclude additional follow-up of suspicious palpable abnormalities. Note on Leona scores and lifetime risk: 1. A Leona score greater than 3% is considered moderate risk. If this is the case, consider specialist referral to assess eligibility for a risk reducing agent. 2. If overall lifetime risk for the development of breast cancer is 20% or higher, the patient may qualify for future screening with alternating mammogram and breast MRI. [facility], , 06/13/2024 8:24 AM. Electronically signed and approved by: Brennan Szymanski DO
== END | disposition home or self-care (01) ==
LOC: RADMAMWWP 09:41
PROVIDERS: ATTEND Family Medicine
DX: Z12.31 Encounter for screening mammogram for malignant neoplasm of breast
CPT/HCPCS: 77063; 77067

== ENCOUNTER → 2024-06-16 | Outpatient (CLI) | payer MEDICARE, OTHER ==
[2024-06-16 16:11] LABS: Basophils # (A) 0.05 X 10*3/uL (0.00-0.10); Basophils % (A) 0.7 %; Eosinophils # (A) 0.23 X 10*3/uL (0.04-0.35); Eosinophils % (A) 3.3 %; HGB 15.8 g/dL (12.0-15.0); Lymphocytes # (A) 1.33 X 10*3/uL (0.90-5.00); Lymphocytes % (A) 19.2 %; MCH 29.1 pg (27.0-32.0); MCHC 32.2 g/dL (32.0-37.0); MCV 90.2 FL (80.0-97.0); Mean Platelet Volume 11.7 FL (9.5-12.2); Monocytes # (A) 0.44 X 10*3/uL (0.20-1.00); Monocytes % (A) 6.4 %; NRBC Per 100 WBC 0 X 10*3/uL (0.00-0.01); Neutrophils # (A) 4.84 X 10*3/uL (1.80-7.70); Platelet Count 245 X 10*3/uL (140-440); RBC 5.43 X 10*6/uL (4.10-5.20); RDW 12.7 % (11.5-14.5); WBC 6.92 X 10*3/uL (4.50-10.00)
[2024-06-16 16:30] LABS: ALT 15 U/L (8-44); AST 19 U/L (13-35); Albumin 4.4 g/dL (3.8-4.9); Albumin/Globulin Ratio 1.76 Ratio (1.60-3.17); Alkaline Phosphatase 84 U/L (41-126); Blood Urea Nitrogen 11.2 mg/dL (9.0-27.0); Calcium 9.4 mg/dL (8.7-10.3); Carbon Dioxide 18.3 mmol/L (21.6-31.8); Chloride 105 mmol/L (96-109); Globulin 2.5 g/dL (1.6-3.3); Glucose 190 mg/dL (70-110); Potassium 4.2 mmol/L (3.5-5.5); Sodium 142 mmol/L (135-145); Total Bilirubin 0.4 mg/dL (0.3-1.2); Total Protein 6.9 g/dL (6.2-8.2)
== END | disposition home or self-care (01) ==
LOC: LABWHC1 10:42
PROVIDERS: ATTEND Family Medicine
DX: E11.9 Type 2 diabetes mellitus without complications (principal)
CPT/HCPCS: 36415; 80053; 83036; 85025

== ENCOUNTER → 2024-08-06 | Outpatient (CLI) | payer MEDICARE, OTHER ==
[2024-08-06 18:58] LABS: ALT 16 U/L (8-44); AST 20 U/L (13-35); Albumin 4.4 g/dL (3.8-4.9); Albumin/Globulin Ratio 1.83 Ratio (1.60-3.17); Alkaline Phosphatase 81 U/L (41-126); BUN/Creat Ratio 17.71 Ratio (12.00-20.00); Blood Urea Nitrogen 12.4 mg/dL (9.0-27.0); Calcium 9.8 mg/dL (8.7-10.3); Carbon Dioxide 25.5 mmol/L (21.6-31.8); Chloride 104 mmol/L (96-109); Globulin 2.4 g/dL (1.6-3.3); Glucose 105 mg/dL (70-110); Potassium 4.3 mmol/L (3.5-5.5); Sodium 142 mmol/L (135-145); Total Bilirubin 0.5 mg/dL (0.3-1.2); Total Protein 6.8 g/dL (6.2-8.2)
== END | disposition home or self-care (01) ==
LOC: LABWHC1 14:15
PROVIDERS: ATTEND Family Medicine
DX: R89.9 Unspecified abnormal finding in specimens from other organs, systems and tissues (principal)
CPT/HCPCS: 36415; 80053

== ENCOUNTER → 2024-12-23 | Outpatient (CLI) | payer MEDICARE, OTHER ==
[2024-12-23 19:06] LABS: Basophils # (A) 0.05 X 10*3/uL (0.00-0.10); Basophils % (A) 0.7 %; Eosinophils # (A) 0.27 X 10*3/uL (0.04-0.35); Eosinophils % (A) 3.9 %; HCT 46.2 % (37.2-46.3); HGB 14.7 g/dL (12.0-15.0); Lymphocytes # (A) 1.84 X 10*3/uL (0.90-5.00); Lymphocytes % (A) 26.9 %; MCH 29.5 pg (27.0-32.0); MCHC 31.8 g/dL (32.0-37.0); MCV 92.8 FL (80.0-97.0); Mean Platelet Volume 12.1 FL (9.5-12.2); Monocytes # (A) 0.46 X 10*3/uL (0.20-1.00); Monocytes % (A) 6.7 %; NRBC Per 100 WBC 0 X 10*3/uL (0.00-0.01); Neutrophils # (A) 4.21 X 10*3/uL (1.80-7.70); Neutrophils % (A) 61.5 %; Platelet Count 222 X 10*3/uL (140-440); RBC 4.98 X 10*6/uL (4.10-5.20); RDW 13.2 % (11.5-14.5); WBC 6.85 X 10*3/uL (4.50-10.00)
[2024-12-23 21:22] LABS: BUN/Creat Ratio 14.57 Ratio (12.00-20.00); Blood Urea Nitrogen 10.2 mg/dL (9.0-27.0); Carbon Dioxide 24.5 mmol/L (21.6-31.8); Chloride 104 mmol/L (96-109); Glucose 161 mg/dL (70-110); Potassium 4.1 mmol/L (3.5-5.5); Sodium 142 mmol/L (135-145)
[2024-12-23 21:23] LABS: ALT 16 U/L (8-44); AST 22 U/L (13-35); Albumin 4.3 g/dL (3.8-4.9); Albumin/Globulin Ratio 1.79 Ratio (1.60-3.17); Alkaline Phosphatase 84 U/L (41-126); Calcium 9.4 mg/dL (8.7-10.3); Globulin 2.4 g/dL (1.6-3.3); Total Bilirubin 0.5 mg/dL (0.3-1.2); Total Protein 6.7 g/dL (6.2-8.2)
== END | disposition home or self-care (01) ==
LOC: LABWHC1 12:39
PROVIDERS: ATTEND Family Medicine
DX: E11.9 Type 2 diabetes mellitus without complications (principal); R03.0 Elevated blood-pressure reading, without diagnosis of hypertension
CPT/HCPCS: 36415; 80053; 83036; 85025

== ENCOUNTER → 2025-01-09 | Outpatient (CLI) | payer MEDICARE, OTHER ==
[2025-01-09 18:25] LABS: Basophils # (A) 0.04 X 10*3/uL (0.00-0.10); Basophils % (A) 0.7 %; Eosinophils # (A) 0.24 X 10*3/uL (0.04-0.35); HCT 44.7 % (37.2-46.3); HGB 14.3 g/dL (12.0-15.0); Lymphocytes % (A) 32.9 %; MCV 90.7 FL (80.0-97.0); Mean Platelet Volume 11.4 FL (9.5-12.2); Monocytes # (A) 0.39 X 10*3/uL (0.20-1.00); Monocytes % (A) 6.4 %; NRBC Per 100 WBC 0 X 10*3/uL (0.00-0.01); Neutrophils # (A) 3.37 X 10*3/uL (1.80-7.70); Neutrophils % (A) 55.5 %; Platelet Count 205 X 10*3/uL (140-440); RBC 4.93 X 10*6/uL (4.10-5.20); RDW 12.8 % (11.5-14.5); WBC 6.07 X 10*3/uL (4.50-10.00)
[2025-01-10 03:25] LABS: BUN/Creat Ratio 16.75 Ratio (12.00-20.00); Blood Urea Nitrogen 13.4 mg/dL (9.0-27.0); Chloride 104 mmol/L (96-109); Glucose 136 mg/dL (70-110); Potassium 4.5 mmol/L (3.5-5.5); Sodium 142 mmol/L (135-145)
[2025-01-10 03:26] LABS: ALT 17 U/L (8-44); AST 23 U/L (13-35); Albumin 4.3 g/dL (3.8-4.9); Albumin/Globulin Ratio 1.79 Ratio (1.60-3.17); Alkaline Phosphatase 89 U/L (41-126); Calcium 9.5 mg/dL (8.7-10.3); Globulin 2.4 g/dL (1.6-3.3); Total Bilirubin 0.4 mg/dL (0.3-1.2); Total Protein 6.7 g/dL (6.2-8.2)
== END | disposition home or self-care (01) ==
LOC: LABWHC1 16:27
PROVIDERS: ATTEND Physician Assistant
DX: R42 Dizziness and giddiness (principal); R53.1 Weakness
CPT/HCPCS: 36415; 80053; 82306; 82607; 82746; 85025